=== PATIENT | female | born 1985 | race Caucasian/White ===

== ENCOUNTER 2016-10-07 11:51 | Emergency (ER) | payer OTHER ==
[2016-10-07 11:56] VITALS: BP 137/74; PULSE 78; RESP 18; TEMP 97.9
[2016-10-07] MEDS ORDERED: DIPH,PERTUS(ACELL)TETVAC-LF 0.5 ML VIAL IM ONE (12:35)
[2016-10-07] MEDS ORDERED: BACITRACIN OINT 1 EACH PACKET TOPICAL STA (12:36)
[2016-10-07] MEDS ORDERED: CEPHALEXIN 500 MG CAP PO STA (12:36)
--- NOTE | 2016-10-07 12:41 | ED ---
Wound/Laceration HPI - General Chief Complaint: Wound/Laceration Stated Complaint: laceration Time Seen by Provider: 10/07/16 12:06 Source: patient Mode of arrival: ambulatory Limitations: no limitations - History of Present Illness Initial Comments: Patient is a 31-year-old female presenting to the emergency department with complaints of laceration to the palmar aspect of her distal second digit on her left hand. Patient states she was building a kite when she cut her finger with a sharp knife. Patient is right handed. Patient currently complains of a mild throbbing pain rated 3 out of 10. Patient denies recent illness, chills, nausea, vomiting, shortness of breath, chest pain, or abdominal pain. Patient denies numbness or tingling. Patient denies previous trauma or surgeries to her left upper extremity. Patient states it has been longer than 5 years since her last tetanus vaccination. No treatment prior to arrival. Patient denies antibiotic use in last 30 days. - Related Data Previous Rx's Medication Instructions Recorded Cephalexin [Keflex] 500 mg PO Q6HR #28 cap 10/07/16 Allergies Allergy/AdvReac Type Severity Reaction Status Date / Time Penicillins AdvReac Nausea & Verified 10/07/16 11:57 Vomiting Review of Systems ROS Statement: Those systems with pertinent positive or pertinent negative responses have been documented in the HPI. ROS Other: All systems not noted in ROS Statement are negative. Past Medical History Additional Past Medical History / Comment(s): chronic knee and back pain, vit d deficiency History of Any Multi-Drug Resistant Organisms: None Reported Past Surgical History: No Surgical Hx Reported Past Psychological History: Bipolar, Depression Smoking Status: Current every day smoker Past Alcohol Use History: Rare Past Drug Use History: Marijuana General Exam - General Exam Comments Initial Comments: GENERAL: Pt awake and alert, well-appearing, well-nourished, and in no acute distress. HEAD: Atraumatic, normocephalic. EYES: Pupils equal, round, and reactive to light, extraocular movements intact, sclera anicteric, conjunctiva are normal. ENT: Oropharynx clear without exudates. Moist mucous membranes. Tongue smooth, pink, no lesions, protrudes in midline. NECK:Normal range of motion, supple without lymphadenopathy or JVD. No carotid bruits. Thyroid midline, small and firm without palpable masses. LUNGS: Breath sounds clear to auscultation bilaterally. No wheezes, rales, or rhonchi. HEART: Heart S1, S2, no S3 or S4. No murmurs, rubs or gallops. ABDOMEN: Soft, nontender, nondistended, normoactive bowel sounds. No guarding, no rebound. No masses or organomegaly appreciated. EXTREMITIES: 2+ peripheral pulses. NEUROLOGICAL: Pt oriented x 3. Cranial nerves II through XII grossly intact. Strength and sensation grossly intact. PSYCH: Normal mood, normal affect. SKIN: Warm, dry, intact. 1 cm laceration to palmar surface of distal second phalanx on the left hand. Limitations: no limitations Left Neuro motor exam: Present: wrist extension intact, thumb opposition intact, thumb IP flexion intact, thumb adduction intact, fingers 2-5 abduction intact Neurosensory exam: Present: 2-point discrimination, radial nerve intact, ulnar nerve intact, median nerve intact Vascular: Present: normal capillary refill, radial pulse, brachial pulse, ulnar pulse. Absent: vascular compromise Course Vital Signs 10/07/16 11:53 Temperature 97.9 F Pulse Rate 78 Respiratory 18 Rate Blood Pressure 137/74 O2 Sat by Pulse 100 Oximetry Procedures - Laceration Laceration #1 Consent Obtained: verbal consent Site: hand (Second digit left hand distal phalanx palmar surface) Size (cm): 1 Description: linear Depth: simple, single layer Anesthetic Used: lidocaine 1% Anesthesia Technique: local infiltration Amount (mls): 1 Pre-repair: wound explored, irrigated extensively, deep structures intact Type of Sutures: nylon Size of Sutures: 5-0 Number of Sutures: 3 Technique: simple, interrupted Patient Tolerated Procedure: well, no complications Medical Decision Making - Medical Decision Making Laceration to second digit left hand. Laceration repaired without complications. Patient tolerated procedure well. Patient educated on wound care. Patient instructed to return for suture removal and observe for complications. This has instructions and return parameters reviewed. Patient agrees to treatment plan. Disposition Clinical Impression: Laceration Disposition: HOME SELF-CARE Condition: Good Instructions: Care For Your Stitches (ED), Laceration (ED) Additional Instructions: Postop wound care: Keep wound dry and clean for 24 hours; if dressing accidentally becomes wet, change dressing immediately. Gently clean the edges of the wound daily with a cotton swab saturated with peroxide to remove crust. Return immediately if signs of infection occur such as redness or red streaks progressing up and extremity, increasing pain, swelling, or fevers. Finish oral antibiotics as prescribed. Please return for suture removal in 7-12 days or sooner if complications. Please return to the emergency department if symptoms do not improve or get worse. Prescriptions: Cephalexin [Keflex] 500 mg PO Q6HR #28 cap Referrals: Rob Mccain MD [Primary Care Provider] - 1-2 days Time of Disposition: 12:39
== END 2016-10-07 13:15 | disposition home or self-care (01) ==
LOC: EC 11:51
DX: S61.211A Laceration without foreign body of left index finger without damage to nail, initial encounter (principal); F17.200 Nicotine dependence, unspecified, uncomplicated; Z88.0 Allergy status to penicillin; Z23 Encounter for immunization; W26.0XXA Contact with knife, initial encounter; Y93.89 Activity, other specified
CPT/HCPCS: 12001; 90471; 90715; 99282

== ENCOUNTER → 2017-02-15 | Outpatient (CLI) | payer OTHER ==
--- NOTE | 2017-02-15 08:03 | MR ---
EXAMINATION TYPE: MR brain wo con DATE OF EXAM: 02/15/2017 6:37 AM COMPARISON: 03/31/2016 HISTORY: migraine w/aura and w/o status migrainosus Multiplanar and multispin-echo imaging of the brain was performed . The ventricles, basal cisterns and sulci overlying the cerebral convexities are within normal limits. There is no evidence for midline shift or mass effect. Acute intracranial hemorrhage or extra-axial collection is not evident. Previously noted small foci of increased signal on the T2 FLAIR data set persists. There is a new are a within the right basal ganglia measuring 3.8 mm as well as within the posterior left de la rosa radiata measuring 4.5 mm.Differential diagnostic possibilities include sequela of migraine headache, vasculi tis, demyelinating process as well as Lyme's disease to name a few. No acute edema is identified. The paranasal sinuses and mastoid air cells are well-aerated. IMPRESSION: Small hyperintense T2 FLAIR lesions as discussed above with slight increase relative to the prior néstor dy. Differential diagnostic possibilities discussed above.
== END | disposition home or self-care (01) ==
LOC: RADMRIMAIN 06:04
PROVIDERS: ATTEND Psychiatry & Neurology Neurology
DX: R90.89 Other abnormal findings on diagnostic imaging of central nervous system (principal); G43.109 Migraine with aura, not intractable, without status migrainosus
CPT/HCPCS: 70551

== ENCOUNTER → 2017-03-18 | Outpatient (CLI) | payer OTHER | END | disposition home or self-care (01) | LOC: LABMAIN 14:40 | PROVIDERS: ATTEND Obstetrics & Gynecology | DX: O20.9 Hemorrhage in early pregnancy, unspecified (principal); Z3A.00 Weeks of gestation of pregnancy not specified | CPT/HCPCS: 36415; 84702 ==

== ENCOUNTER → 2017-06-11 | Outpatient (CLI) | payer OTHER ==
[2017-06-11 11:07] LABS: Basophils % (A) 1 %; Eosinophils # (A) 0.2 k/uL (0-0.7); Eosinophils % (A) 3 %; HCT 43.4 % (34.0-46.0); HGB 13.6 gm/dL (11.4-16.0); Lymphocytes # (A) 1.4 k/uL (1.0-4.8); Lymphocytes % (A) 30 %; MCH 31.3 pg (25.0-35.0); MCHC 31.3 g/dL (31.0-37.0); Mean Platelet Volume 8.5; Monocytes # (A) 0.4 k/uL (0-1.0); Monocytes % (A) 8 %; Neutrophils # (A) 2.6 k/uL (1.3-7.7); Neutrophils % (A) 56 %; Platelet Count 203 k/uL (150-450); RBC 4.34 m/uL (3.80-5.40); RDW 13.2 % (11.5-15.5); WBC 4.7 k/uL (3.8-10.6)
[2017-06-11 11:18] LABS: ALT 22 U/L (9-52); AST 20 U/L (14-36); Albumin 4.3 g/dL (3.5-5.0); Alkaline Phosphatase 66 U/L (38-126); Anion Gap 9 mmol/L; Blood Urea Nitrogen 14 mg/dL (7-17); Calcium 9.6 mg/dL (8.4-10.2); Carbon Dioxide 27 mmol/L (22-30); Chloride 107 mmol/L (98-107); Glucose 97 mg/dL (74-99); Potassium 4.5 mmol/L (3.5-5.1); Sodium 143 mmol/L (137-145); Total Bilirubin 1.2 mg/dL (0.2-1.3); Total Protein 7.3 g/dL (6.3-8.2)
[2017-06-11 11:32] LABS: T4, Free (Free Thyroxine) 0.87 ng/dL (0.78-2.19)
[2017-06-11 15:17] LABS: Folate, Serum 9.3 ng/mL
[2017-06-11 15:19] LABS: Vitamin D 25 Hydroxy 45.6 ng/mL (30.0-100.0)
[2017-06-11 15:24] LABS: Progesterone <0.2 ng/mL
[2017-06-11 15:47] LABS: Hepatitis A Antibody IgM Non-Reactive (Non-Reactive); Hepatitis B Core IgM Non-Reactive (Non-Reactive)
[2017-06-11 16:39] LABS: Hemoglobin A1C 4.9 % (4.0-6.0)
[2017-06-11 18:09] LABS: Cardiolipin Ab IgG Interp NEGATIVE (NEGATIVE); Cardiolipin Ab IgM Interp NEGATIVE (NEGATIVE); Cardiolipin IgA Antibody 0.5 U/mL; Cardiolipin IgM Antibody <0.2 U/mL; HIV AB P24 Non-Reactive (Non-Reactive); HIV P24 AG Non-Reactive (Non-Reactive)
[2017-06-12 12:19] LABS: Anti-Thrombin III Activity 115 % (79-109)
[2017-06-12 13:46] LABS: Free Protein S Antigen 80 % (50 - 147)
[2017-06-12 14:20] LABS: Protein C (Activity) 62 % (71-138)
[2017-06-12 15:27] LABS: Vitamin B6 20 ug/L (5-50)
[2017-06-13 07:06] LABS: Vitamin B1 53 ug/L (38-122)
[2017-06-15 14:25] LABS: Factor V Leiden Mutation Anal Heterozygous
[2017-06-23 07:02] LABS: Nicotinuric Acid None Detected
== END | disposition home or self-care (01) ==
LOC: LABWHC1 10:17
PROVIDERS: ATTEND Obstetrics & Gynecology
DX: O26.20 Pregnancy care for patient with recurrent pregnancy loss, unspecified trimester (principal); O99.89 Other specified diseases and conditions complicating pregnancy, childbirth and the puerperium; R90.82 White matter disease, unspecified; R51 Headache; Z3A.00 Weeks of gestation of pregnancy not specified
CPT/HCPCS: 36415; 80053; 80074; 81241; 81291; 82040; 82042; 82306; 82607; 82670; 82746; 82784; 83036; 83873; 83916; 84144; 84146; 84157; 84207; 84425; 84439; 84443; 84481; 84591; 85025; 85300; 85303; 85306; 86147; 87390; 87476; 88108; 89050

== ENCOUNTER → 2017-07-07 | Outpatient (CLI) | payer OTHER ==
--- NOTE | 2017-07-07 08:21 | MR ---
EXAMINATION TYPE: MR cspine/lspine wo con DATE OF EXAM ORDERED: 07/07/2017 8:09 AM HISTORY: M54.2 Cervicalgia / M54.5 Low back pain. TECHNOLOGIST HISTORY AT TIME OF EXAM: Cervicalgia / Low back pain COMPARISON: TECHNIQUE: Multiplanar, multiecho imaging of the cervical spine was obtained without contrast on a 1 .5 bailee magnet. FINDINGS: C-SPINE: Prevertebral soft tissues are normal. Vertebral body height and alignment are maintained. Atlantoaxial relationships are normal. There is a normal craniocervical junction. Cord signal is normal. There is no significant compressive discopathy. Intervertebral foramina are well maintained. The face t and uncovertebral joints are normal. IMPRESSION: NORMAL MRI OF THE CERVICAL SPINE. L-SPINE: Paraspinal soft tissues are normal. Vertebral body height and alignment are maintained. Cord signal is normal. The conus ends normally at the level of the L2 vertebral body. From T12 L1-2 L2-3, no abnormality is seen. At L3-4, there is minimal capsulitis within the facets. At L4-5, there is minimal hypertrophic change in the facets. At L5-S1, there is mild hypertrophic change in the facets. There is no significant compressive discopathy. The neural foramina appear well maintained. IMPRESSION: 1. NO SIGNIFICANT COMPRESSIVE DISCOPATHY OR NEURAL COMPRESSION. 2. MINIMAL FACET ARTHROPATHY.
== END | disposition home or self-care (01) ==
LOC: RADMRIMAIN 07:12
PROVIDERS: ATTEND Psychiatry & Neurology Neurology
DX: M54.2 Cervicalgia (principal); M54.5 Low back pain
CPT/HCPCS: 72141; 72148

== ENCOUNTER → 2017-08-08 | Outpatient (CLI) | payer OTHER ==
[2017-08-08 15:17] LABS: Eosinophils # (A) 0.3 k/uL (0-0.7); Eosinophils % (A) 5 %; HCT 43.1 % (34.0-46.0); HGB 14.6 gm/dL (11.4-16.0)
[2017-08-08 15:18] LABS: Basophils % (A) 1 %; Lymphocytes # (A) 1.5 k/uL (1.0-4.8); Lymphocytes % (A) 29 %; MCV 94.2 fL (80.0-100.0); Mean Platelet Volume 7.7; Monocytes # (A) 0.4 k/uL (0-1.0); Monocytes % (A) 7 %; Neutrophils % (A) 57 %; Platelet Count 188 k/uL (150-450); RBC 4.57 m/uL (3.80-5.40); RDW 11.9 % (11.5-15.5); WBC 5.2 k/uL (3.8-10.6)
[2017-08-08 15:20] LABS: ALT 22 U/L (9-52); AST 17 U/L (14-36); Albumin 4.3 g/dL (3.5-5.0); Alkaline Phosphatase 74 U/L (38-126); Anion Gap 10 mmol/L; Blood Urea Nitrogen 13 mg/dL (7-17); Calcium 9.4 mg/dL (8.4-10.2); Carbon Dioxide 26 mmol/L (22-30); Chloride 107 mmol/L (98-107); Glucose 91 mg/dL (74-99); Potassium 4.1 mmol/L (3.5-5.1); Sodium 143 mmol/L (137-145); Total Protein 7.4 g/dL (6.3-8.2)
[2017-08-08 15:37] LABS: T4, Free (Free Thyroxine) 0.95 ng/dL (0.78-2.19)
[2017-08-08 18:50] LABS: Vitamin D 25 Hydroxy 27.6 ng/mL (30.0-100.0)
[2017-08-08 18:52] LABS: Folate, Serum 6.8 ng/mL
[2017-08-08 19:11] LABS: Hepatitis A Antibody IgM Non-Reactive (Non-Reactive); Hepatitis B Core IgM Non-Reactive (Non-Reactive)
[2017-08-08 20:10] LABS: HIV AB P24 Non-Reactive (Non-Reactive); HIV P24 AG Non-Reactive (Non-Reactive)
[2017-08-08 22:16] LABS: Hemoglobin A1C 4.9 % (4.0-6.0)
[2017-08-09 12:29] LABS: Vitamin B1 49 ug/L (38-122)
[2017-08-10 05:23] LABS: Vitamin B6 15 ug/L (5-50)
== END | disposition home or self-care (01) ==
LOC: LABWHC1 14:43
PROVIDERS: ATTEND Psychiatry & Neurology Pain Medicine
DX: G35 Multiple sclerosis (principal)
CPT/HCPCS: 36415; 80053; 80074; 82306; 82607; 82746; 83036; 84207; 84425; 84439; 84443; 84481; 84591; 85025; 87390

== ENCOUNTER 2017-09-11 17:56 | Emergency (ER) | payer OTHER ==
--- NOTE | 2017-09-11 19:19 | ED ---
General Adult HPI - General Chief complaint: Chest Pain Stated complaint: chest pain, up into throat, rt side of head pain Time Seen by Provider: 09/11/17 18:56 Source: patient, RN notes reviewed, old records reviewed Mode of arrival: wheelchair Limitations: no limitations - History of Present Illness Initial comments: Chief complaint and history of present illness is a 32-year-old female with complaint of acute onset midsternal chest discomfort that does increase with deep breathing. Not with twisting turning or bending. Denies sweating, no nausea no vomiting. Patient reports the discomfort went up towards her right neck area. The patient has chronic headaches. Patient reports swallowing water increased discomfort to a small degree. This occurred at 4 PM. - Related Data Home Medications Medication Instructions Recorded Confirmed Ergocalciferol (Vitamin D2) 50,000 unit PO Q7D 09/11/17 09/11/17 [Vitamin D2] Naproxen [Naprosyn] 500 mg PO Q12HR PRN 09/11/17 09/11/17 SUMAtriptan SUCCINATE [Imitrex] 50 mg PO DIRECTED PRN 09/11/17 09/11/17 Topiramate [Topamax] 50 mg PO BID PRN 09/11/17 09/11/17 Allergies Allergy/AdvReac Type Severity Reaction Status Date / Time amoxicillin AdvReac Nausea & Verified 09/11/17 19:24 Vomiting Penicillins AdvReac Nausea & Verified 09/11/17 18:01 Vomiting Review of Systems ROS Statement: Those systems with pertinent positive or pertinent negative responses have been documented in the HPI. Review of systems currently minimal to no headache no visual acuity changes no neck pain no chest pain but states deep breath. Is not complaining of shortness of breath otherwise no GI/ problems no neuro deficit complains of. All systems are reviewed. Past medical problem patient reports she's had no test recently diagnosed, one month ago, with MS. She also has a history of chronic migraines. Patient denies any surgeries. Family history significant for cancers of the cervix breast and colon. Patient was told discuss with her family physician when she should get her first colonoscopy. Patient does have seasonal ALLERGIES. She does smoke strongly encouraged to stop and drink alcohol rarely socially. Denies hurting herself by lifting twisting or turning ROS Other: All systems not noted in ROS Statement are negative. Past Medical History Additional Past Medical History / Comment(s): chronic knee and back pain, vit d deficiency History of Any Multi-Drug Resistant Organisms: None Reported Past Surgical History: No Surgical Hx Reported Past Psychological History: Bipolar, Depression Smoking Status: Current every day smoker Past Alcohol Use History: Rare Past Drug Use History: Marijuana General Exam - General Exam Comments Initial Comments: General: The patient is awake and alert, in no distress, and does not appear acutely ill. Here because she had chest discomfort starting approximately 3 hours ago that increases with taking a deep breath. Vital signs temperature 98.3 pulse 76 respiratory rate 20 pulse ox 99% room air blood pressure 134/72 Eye: Pupils are equal, round and reactive to light, extra-ocular movements are intact ; there is normal conjunctiva bilaterally. No signs of icterus. Ears, nose, mouth and throat: There are moist mucous membranes and no oral lesions. Neck: The neck is supple, there is no tenderness. Cardiovascular: There is a regular rate and rhythm. No murmur, rub or gallop is appreciated. Respiratory: Lungs are clear to auscultation, respirations are non-labored, breath sounds are equal. No wheezes, stridor, rales, or rhonchi. Midsternal chest discomfort does increase slightly with a deep breath. Gastrointestinal: Soft, non-distended, non-tender abdomen without masses or organomegaly noted. There is no rebound or guarding present. No CVA tenderness. Bowel sounds are unremarkable. Back: There is no tenderness to palpation in the midline. There is no obvious deformity. No rashes noted. Musculoskeletal: Normal ROM, no tenderness, There is no pedal edema. There is no calf tenderness or swelling. Sensation intact. Neurological: Denies any weakness, dizziness or neuro changes. Skin: Skin is warm and dry and no rashes or lesions are noted. Psychiatric: Cooperative, Limitations: no limitations Course Vital Signs 09/11/17 09/11/17 17:59 19:28 Temperature 98.3 F Pulse Rate 76 52 L Respiratory 20 16 Rate Blood Pressure 134/72 175/70 O2 Sat by Pulse 99 98 Oximetry EKG Findings - EKG Comments: EKG Findings:: EKG was done and reviewed at 1809 showing sinus bradycardia with sinus arrhythmia. Rate 56. Eye was 172 QRS 90 QT [address] Helms Medical Decision Making - Medical Decision Making Test Medical decision making; this is a 32-year-old female here with complaint of mid chest pain increases with deep breathing. Ongoing for over 3 hours. Labs show white count 7.5 hemoglobin 13 hematocrit of 41 with a INR 1.2. Potassium 4.4 to a BUN of 18 creatinine 0.8 GFR greater than 90. Glucose 90. Test Total bilirubin is 1.6. D-dimer less than 0.17 cardiac enzymes, normal, troponin less than 0.012. chest x-ray was done and reviewed by radiologist his impression is heart and mediastinum are normal. Lungs are clear. Diaphragm is normal. Bony thorax appears normal. Impression normal chest. No change. As read by Dr. Singh Reexamination of the abdomen was negative for any tenderness in the gallbladder area. We discussed pill esophagitis, spasms, cardiac issues, lung issues. This time patient does not have any discomfort. She was told to take Pepcid 1 tablet daily. She is to take food with any pain medication she is taking for her headaches. She may need endoscopy if the pain persists. Advised to talk her family doctor - Lab Data Result diagrams: 09/11/17 19:29 09/11/17 19:29 Lab Results 09/11/17 09/11/17 09/11/17 Range/Units 19:29 19:29 19:29 WBC 7.5 (3.8-10.6) k/uL RBC 4.37 (3.80-5.40) m/uL Hgb 13.6 (11.4-16.0) gm/dL Hct 41.1 (34.0-46.0) % MCV 94.0 (80.0-100.0) fL MCH 31.2 (25.0-35.0) pg MCHC 33.1 (31.0-37.0) g/dL RDW 12.4 (11.5-15.5) % Plt Count 246 (150-450) k/uL Neutrophils % 70 % Lymphocytes % 21 % Monocytes % 5 % Eosinophils % 3 % Basophils % 0 % Neutrophils # 5.3 (1.3-7.7) k/uL Lymphocytes # 1.6 (1.0-4.8) k/uL Monocytes # 0.4 (0-1.0) k/uL Eosinophils # 0.2 (0-0.7) k/uL Basophils # 0.0 (0-0.2) k/uL PT (9.0-12.0) sec INR (<1.2) D-Dimer (<0.60) mg/L FEU Sodium 143 (137-145) mmol/L Potassium 4.4 (3.5-5.1) mmol/L Chloride 107 (98-107) mmol/L Carbon Dioxide 24 (22-30) mmol/L Anion Gap 12 mmol/L BUN 18 H (7-17) mg/dL Creatinine 0.80 (0.52-1.04) mg/dL Est GFR (CKD-EPI)AfAm >90 (>60 ml/min/1.73 sqM) Est GFR (CKD-EPI)NonAf >90 (>60 ml/min/1.73 sqM) Glucose 90 (74-99) mg/dL Calcium 9.7 (8.4-10.2) mg/dL Total Bilirubin 1.6 H (0.2-1.3) mg/dL AST 17 (14-36) U/L ALT 21 (9-52) U/L Alkaline Phosphatase 70 (38-126) U/L Total Creatine Kinase 90 (30-135) U/L CK-MB (CK-2) 0.3 (0.0-2.4) ng/mL CK-MB (CK-2) Rel Index 0.3 Troponin I <0.012 (0.000-0.034) ng/mL Total Protein 7.0 (6.3-8.2) g/dL Albumin 4.2 (3.5-5.0) g/dL 09/11/17 Range/Units 19:29 WBC (3.8-10.6) k/uL RBC (3.80-5.40) m/uL Hgb (11.4-16.0) gm/dL Hct (34.0-46.0) % MCV (80.0-100.0) fL MCH (25.0-35.0) pg MCHC (31.0-37.0) g/dL RDW (11.5-15.5) % Plt Count (150-450) k/uL Neutrophils % % Lymphocytes % % Monocytes % % Eosinophils % % Basophils % % Neutrophils # (1.3-7.7) k/uL Lymphocytes # (1.0-4.8) k/uL Monocytes # (0-1.0) k/uL Eosinophils # (0-0.7) k/uL Basophils # (0-0.2) k/uL PT 11.7 (9.0-12.0) sec INR 1.2 H (<1.2) D-Dimer <0.17 (<0.60) mg/L FEU Sodium (137-145) mmol/L Potassium (3.5-5.1) mmol/L Chloride (98-107) mmol/L Carbon Dioxide (22-30) mmol/L Anion Gap mmol/L BUN (7-17) mg/dL Creatinine (0.52-1.04) mg/dL Est GFR (CKD-EPI)AfAm (>60 ml/min/1.73 sqM) Est GFR (CKD-EPI)NonAf (>60 ml/min/1.73 sqM) Glucose (74-99) mg/dL Calcium (8.4-10.2) mg/dL Total Bilirubin (0.2-1.3) mg/dL AST (14-36) U/L ALT (9-52) U/L Alkaline Phosphatase (38-126) U/L Total Creatine Kinase (30-135) U/L CK-MB (CK-2) (0.0-2.4) ng/mL CK-MB (CK-2) Rel Index Troponin I (0.000-0.034) ng/mL Total Protein (6.3-8.2) g/dL Albumin (3.5-5.0) g/dL Disposition Clinical Impression: Reflux esophagitis Disposition: HOME SELF-CARE Condition: Fair Instructions: Gastroesophageal Reflux Disease (ED), Esophageal Spasm (ED), Diet for Stomach Ulcers and Gastritis (ED) Is patient prescribed a controlled substance at d/c from ED?: No Referrals: Rob Mccain MD [Primary Care Provider] - 1-2 days Time of Disposition: 20:51
[2017-09-11 19:31] VITALS: RESP 16
[2017-09-11 19:41] LABS: Basophils % (A) 0 %; Eosinophils # (A) 0.2 k/uL (0-0.7); Eosinophils % (A) 3 %; HCT 41.1 % (34.0-46.0); HGB 13.6 gm/dL (11.4-16.0); Lymphocytes # (A) 1.6 k/uL (1.0-4.8); Lymphocytes % (A) 21 %; MCH 31.2 pg (25.0-35.0); MCHC 33.1 g/dL (31.0-37.0); Mean Platelet Volume 8.2; Monocytes # (A) 0.4 k/uL (0-1.0); Monocytes % (A) 5 %; Neutrophils # (A) 5.3 k/uL (1.3-7.7); Neutrophils % (A) 70 %; Platelet Count 246 k/uL (150-450); RBC 4.37 m/uL (3.80-5.40); RDW 12.4 % (11.5-15.5); WBC 7.5 k/uL (3.8-10.6)
--- NOTE | 2017-09-11 19:44 | XR ---
EXAMINATION TYPE: XR chest 2V DATE OF EXAM: 09/11/2017 COMPARISON: 03/31/2012 HISTORY: Epigastric pain TECHNIQUE: Frontal and lateral views of the chest are obtained. FINDINGS: Heart and mediastinum are normal. Lungs are clear. Diaphragm is normal. Bony thorax appear s normal. IMPRESSION: Normal chest. No change.
[2017-09-11 19:50] LABS: ALT 21 U/L (9-52); AST 17 U/L (14-36); Albumin 4.2 g/dL (3.5-5.0); Alkaline Phosphatase 70 U/L (38-126); Anion Gap 12 mmol/L; Blood Urea Nitrogen 18 mg/dL (7-17); Calcium 9.7 mg/dL (8.4-10.2); Carbon Dioxide 24 mmol/L (22-30); Chloride 107 mmol/L (98-107); Glucose 90 mg/dL (74-99); Potassium 4.4 mmol/L (3.5-5.1); Sodium 143 mmol/L (137-145); Total Bilirubin 1.6 mg/dL (0.2-1.3)
[2017-09-11 19:57] LABS: D-Dimer <0.17 mg/L FEU (<0.60); INR 1.2 (<1.2); Prothrombin Time 11.7 sec (9.0-12.0)
[2017-09-11 20:08] LABS: Creatine Kinase 90 U/L (30-135)
[2017-09-11 20:20] LABS: Creatine Kinase MB 0.3 ng/mL (0.0-2.4); Troponin I <0.012 ng/mL (0.000-0.034)
[2017-09-11 21:24] VITALS: BP 112/74; PULSE 80; TEMP 97.9
== END 2017-09-11 21:31 | disposition home or self-care (01) ==
LOC: EC 17:56
DX: K21.0 Gastro-esophageal reflux disease with esophagitis (principal); R51 Headache; R00.1 Bradycardia, unspecified; E55.9 Vitamin D deficiency, unspecified; F17.200 Nicotine dependence, unspecified, uncomplicated; Z79.899 Other long term (current) drug therapy; Z88.0 Allergy status to penicillin
CPT/HCPCS: 36415; 71046; 80053; 82550; 82553; 84484; 85025; 85379; 85610; 93005; 99285

== ENCOUNTER 2018-08-20 16:00 | Emergency (ER) | payer OTHER ==
[2018-08-20 16:32] VITALS: RESP 18; TEMP 98.4
--- NOTE | 2018-08-20 16:51 | ED ---
URI HPI - General Chief Complaint: Upper Respiratory Infection Stated Complaint: cold symptoms Time Seen by Provider: 08/20/18 16:38 Source: patient Mode of arrival: ambulatory Limitations: no limitations - History of Present Illness Initial Comments: This 33-year-old white female presents with the complaint of some nasal congestion which is been present over the last 2 days. She complains of some sinus pressure as well as a yellowish greenish discharge from her nose. She's only had a minimal cough with slight shortness of breath. She denies any ear pain or sore throat. There's been no fever or chills. She denies any possibility of . She did try some type of antihistamine or decongestant medication this morning without any relief. No other complaints or modifying factors. She denies any asthma or lung problems. - Related Data Home Medications Medication Instructions Recorded Confirmed Ergocalciferol (Vitamin D2) 50,000 unit PO Q7D 09/11/17 09/11/17 [Vitamin D2] Naproxen [Naprosyn] 500 mg PO Q12HR PRN 09/11/17 09/11/17 SUMAtriptan SUCCINATE [Imitrex] 50 mg PO DIRECTED PRN 09/11/17 09/11/17 Topiramate [Topamax] 50 mg PO BID PRN 09/11/17 09/11/17 Previous Rx's Medication Instructions Recorded Famotidine [Pepcid] 20 mg PO DAILY #30 tablet 09/11/17 Albuterol Sulfate [Proair Hfa] 2 puff INHALATION Q4H PRN #1 08/20/18 inhaler Cefuroxime Axetil [Ceftin] 500 mg PO BID #20 tab 08/20/18 Fluticasone Nasal [place] [Flonase 2 spr EA NOSTRIL DAILY #1 bottle 08/20/18 Nasal Mantol[place]] Allergies Allergy/AdvReac Type Severity Reaction Status Date / Time amoxicillin AdvReac Nausea & Verified 08/20/18 16:32 Vomiting Penicillins AdvReac Nausea & Verified 08/20/18 16:32 Vomiting Review of Systems ROS Statement: Those systems with pertinent positive or pertinent negative responses have been documented in the HPI. ROS Other: All systems not noted in ROS Statement are negative. Past Medical History Additional Past Medical History / Comment(s): chronic knee and back pain, vit d deficiency History of Any Multi-Drug Resistant Organisms: None Reported Past Surgical History: No Surgical Hx Reported Past Psychological History: Bipolar, Depression Smoking Status: Current every day smoker Past Alcohol Use History: Rare Past Drug Use History: Marijuana General Exam - General Exam Comments Initial Comments: GENERAL: The patient is well nourished and well hydrated. VITAL SIGNS: Heart rate, blood pressure, respiratory rate reviewed as recorded in nurse's notes. EYES: Pupils are round and reactive. Extraocular movements are intact. No conjunctival / lid redness or swelling. ENT: No external evidence of injury, swelling, or ecchymosis. Airway is patent. Throat is clear. Tympanic membranes are clear. There is some moderate nasal congestion noted. There is slight tenderness over the sinuses. No cervical lymphadenopathy. NECK: Nontender. No swelling or evidence of injury. No subcutaneous emphysema. Trachea is midline. No thyroid mass. HEART: Regular rate and rhythm. Good peripheral pulses. LUNGS/CHEST: Breath sounds clear and equal bilaterally. No rales, rhonchi, or wheezes. No ecchymosis, subcutaneous emphysema, or tenderness. ABDOMEN: Abdomen soft without tenderness. No palpable masses or organomegaly. No peritoneal signs. No abdominal wall swelling or ecchymosis. EXTREMITIES: No extremity tenderness. Normal muscle tone and function. No thoracolumbar tenderness. NEUROLOGIC: Sensation is grossly intact. Cranial nerve exam reveals face is symmetrical, tongue is midline, speech is clear. SKIN: No abrasions or ecchymosis is noted. No induration or masses noted. PSYCHIATRIC: Alert and oriented. Appropriate behavior and judgment. Limitations: no limitations Course Vital Signs 08/20/18 16:30 Temperature 98.4 F Pulse Rate 74 Respiratory 18 Rate Blood Pressure 116/77 O2 Sat by Pulse 98 Oximetry Medical Decision Making - Medical Decision Making The patient was seen and examined. It is felt as though she likely does have a sinusitis. She'll be treated for this. The possibility of a early bronchitis is also possible. She appears quite stable clinically and agrees with the following disposition and leaves in no distress. Disposition Clinical Impression: Sinusitis Disposition: HOME SELF-CARE Condition: Good Instructions (If sedation given, give patient instructions): Sinusitis (ED) Prescriptions: Cefuroxime Axetil [Ceftin] 500 mg PO BID #20 tab Fluticasone Nasal [place] [Flonase Nasal Mantoloking] 2 spr EA NOSTRIL DAILY #1 bottle Albuterol Sulfate [Proair Hfa] 2 puff INHALATION Q4H PRN #1 inhaler PRN Reason: Shortness Of Breath Or Wheezing Is patient prescribed a controlled substance at d/c from ED?: No Referrals: Rob Mccain MD [Primary Care Provider] - 1-2 days Time of Disposition: 16:49
[2018-08-20 17:48] VITALS: BP 98/58; PULSE 63
== END 2018-08-20 17:42 | disposition home or self-care (01) ==
LOC: EC 16:00
DX: J32.9 Chronic sinusitis, unspecified (principal); E55.9 Vitamin D deficiency, unspecified; F17.200 Nicotine dependence, unspecified, uncomplicated; Z88.0 Allergy status to penicillin
CPT/HCPCS: 99284

== ENCOUNTER 2018-10-21 23:45 | Emergency (ER) | payer OTHER ==
--- NOTE | 2018-10-22 01:51 | CT ---
EXAM: CT Head Without Intravenous Contrast CLINICAL HISTORY: ITS.REASON CT Reason: Pain TECHNIQUE: Axial computed tomography images of the head/brain without intravenous contrast. CTDI is 49.3 mGy and DLP is 1094.4 mGy-cm. This CT exam was performed using one or more of the following dose reduction techniques: automated exposure control, adjustment of the mA and/or kV according to patient size, and/or use of iterative reconstruction technique. COMPARISON: CT head 03/09/2016 FINDINGS: Brain: No evidence of acute transcortical cerebral infarction or intracranial hemorrhage. No abnormal mass effect or midline shift. No abnormal extra-axial collections. Ventricles: Ventricles are unremarkable. Bones/joints: No skull fracture identified. Sinuses: Imaged paranasal sinuses are clear. Mastoid air cells: Mastoid sinuses are clear. IMPRESSION: No evidence of acute intracranial abnormality.
[2018-10-22] MEDS ORDERED: METOCLOPRAMIDE 5 MG/ML 2 ML VIAL IVP STA (01:54)
[2018-10-22] MEDS ORDERED: SODIUM CHLORIDE 0.9% 1,000 ML IV STA (01:54)
[2018-10-22] MEDS ORDERED: diphenhydrAMINE 50 MG/ML 1 ML VIAL IVP STA (01:54)
[2018-10-22] MEDS ORDERED: KETOROLAC 30 MG/ML 1 ML VIAL IVP STA (01:54)
[2018-10-22] MEDS ORDERED: predniSONE 20 MG TAB PO STA ×2 (03:04)
--- NOTE | 2018-10-22 03:22 | ED ---
General Adult HPI - General Chief complaint: Headache Stated complaint: L Sided Pain, Hx MS Time Seen by Provider: 10/22/18 00:49 Source: patient, RN notes reviewed, old records reviewed Mode of arrival: ambulatory Limitations: no limitations - History of Present Illness Initial comments: 33-year-old female patient with history of multiple sclerosis parents ED approximately 3 weeks of left-sided headache. Patient reports that she has pressure sensation behind her eyes. Patient states this feels similar headache she is in the past. Denies worst headache of life. Denies thunderclap onset. Denies any recent falls or trauma. Denies any use of blood thinners. Patient does report that she has been dropping things more thoroughly left hand recently. Denies any weakness in upper or lower extremities. Denies any other complaints. Patient states that she is not . Systemic: Pt denies fatigue, fever/chills, rash. Pt denies weakness, night sweats, weight loss. Neuro: Pt denies syncope or pre-syncope. HEENT: Pt denies ocular discharge or irritation, otalgia, rhinorrhea, pharyngitis or notable lymphadenopathy. Cardiopulmonary: Pt denies chest pain, SOB, heart palpitations, dyspnea on exertion. Abdominal/GI: Pt denies abdominal pain, n/v/d. : Pt denies dysuria, burning w/ urination, frequency/urgency. Denies new onset urinary or bowel incontinence. MSK: Pt denies myalgia, loss of strength or function in extremities. Neuro: Pt denies new onset weakness, paresthesias. - Related Data Home Medications Medication Instructions Recorded Confirmed Aspirin EC [Ecotrin Low Dose] 81 mg PO DAILY 08/20/18 08/20/18 Previous Rx's Medication Instructions Recorded Albuterol Sulfate [Proair Hfa] 2 puff INHALATION Q4H PRN #1 08/20/18 inhaler Cefuroxime Axetil [Ceftin] 500 mg PO BID #20 tab 08/20/18 Fluticasone Nasal [place] [Flonase 2 spr EA NOSTRIL DAILY #1 bottle 08/20/18 Nasal [place]] predniSONE 40 mg PO Q12HR 4 Days tab 10/22/18 Allergies Allergy/AdvReac Type Severity Reaction Status Date / Time amoxicillin AdvReac Nausea & Verified 10/22/18 00:18 Vomiting Penicillins AdvReac Nausea & Verified 10/22/18 00:18 Vomiting Review of Systems ROS Statement: Those systems with pertinent positive or pertinent negative responses have been documented in the HPI. ROS Other: All systems not noted in ROS Statement are negative. Past Medical History Additional Past Medical History / Comment(s): chronic knee and back pain, vit d deficiency, MS History of Any Multi-Drug Resistant Organisms: None Reported Past Surgical History: No Surgical Hx Reported Past Psychological History: Bipolar, Depression Smoking Status: Current every day smoker Past Alcohol Use History: Rare Past Drug Use History: Marijuana General Exam - General Exam Comments Initial Comments: Constitutional: NAD, AOX3, Pt has pleasant affect. HEENT: NC/AT, trachea midline, neck supple, no lymphadenopathy. Posterior pharynx non erythematous, without exudates. External ears appear normal, without discharge. Mucous membranes moist. Eyes PERRLA, EOM intact. There is no scleral icterus. No pallor noted. Cardiopulmonary: RRR, no murmurs, rubs or gallops, no JVD noted. Lungs CTAB in anterior and posterior curiel. No peripheral edema. Abdominal exam: Abdomen soft and non-distended. Abdomen non-tender to palpation in all 4 quadrants. Bowel sounds active in LLQ. No hepatosplenomegaly. No ecchymosis Neuro: CN II-XII intact. No nuchal rigidity. No raccon eyes, no middleton sign, no hemotympanum. No cervical spinal tenderness. MSK: No posterior calf tenderness bilaterally, homans sign negative bilaterally. Posterior tibialis and radial pulse +2 bilaterally. Sensation intact in upper and lower extremities. Full active ROM in upper and lower extremities, 5/5 stregnth. Limitations: no limitations Course Vital Signs 10/22/18 00:14 Temperature 98.2 F Pulse Rate 88 Respiratory 16 Rate Blood Pressure 130/89 O2 Sat by Pulse 99 Oximetry Medical Decision Making - Medical Decision Making 33-year-old female patient with history of multiple sclerosis parents ED approximately 3 weeks of left-sided headache. Patient reports that she has pressure sensation behind her eyes. Patient states this feels similar headache she is in the past. Denies worst headache of life. Denies thunderclap onset. Denies any recent falls or trauma. Denies any use of blood thinners. Patient does report that she has been dropping things more thoroughly left hand recently. Denies any weakness in upper or lower extremities. Denies any other complaints. Patient states that she is not . Physical exam displayed normal neurologic exam. CT brain did not display acute pathology. Patient improved with headache cocktail. Patient stated 80 mg prednisone. Patient will be discharged with 40 mg prednisone BID for the next 4 days for possible multiple sclerosis exacerbation. Patient will follow-up with neurologist tomorrow. Patient return to your condition worsens. Case discussed with Dr. Fontaine. Disposition Clinical Impression: Acute headache, Multiple sclerosis exacerbation Disposition: HOME SELF-CARE Condition: Stable Instructions (If sedation given, give patient instructions): Acute Headache (ED), Multiple Sclerosis (DC) Additional Instructions: Patient to adhere to previously discussed treatment plan and will take medicati on(s) as directed. Patient to follow up with PCP in 1-2 days. Patient to return to ED if symptoms do not improve. Take steroids as directed. Follow-up with primary care provider and neurologist tomorrow. Return to ER if condition worsens. Prescriptions: predniSONE 40 mg PO Q12HR 4 Days tab Is patient prescribed a controlled substance at d/c from ED?: No Referrals: Rob Mccain MD [Primary Care Provider] - 1-2 days Kandace Liu MD [Medical Doctor] - 1-2 days
[2018-10-22 03:38] VITALS: BP 125/72; PULSE 61; RESP 17; TEMP 97.8
== END 2018-10-22 03:36 | disposition home or self-care (01) ==
LOC: EC 23:45
DX: G35 Multiple sclerosis (principal); R51 Headache; F17.200 Nicotine dependence, unspecified, uncomplicated; Z79.82 Long term (current) use of aspirin; Z88.0 Allergy status to penicillin; Z53.8 Procedure and treatment not carried out for other reasons
CPT/HCPCS: 70450; 99284; 96374; 96375 ×2; 96361; J1200; J2765; J1885; J7512

== ENCOUNTER → 2018-10-22 | Outpatient (CLI) | payer OTHER ==
[2018-10-22 16:33] LABS: Basophils % (A) 0 %; Eosinophils % (A) 0 %; HCT 40.9 % (34.0-46.0); HGB 13.1 gm/dL (11.4-16.0); Lymphocytes # (A) 0.8 k/uL (1.0-4.8); Lymphocytes % (A) 9 %; MCH 31.2 pg (25.0-35.0); MCHC 31.9 g/dL (31.0-37.0); MCV 97.7 fL (80.0-100.0); Mean Platelet Volume 7.9; Monocytes # (A) 0.2 k/uL (0-1.0); Monocytes % (A) 3 %; Neutrophils # (A) 7.6 k/uL (1.3-7.7); Neutrophils % (A) 88 %; Platelet Count 226 k/uL (150-450); RBC 4.19 m/uL (3.80-5.40); RDW 11.9 % (11.5-15.5); WBC 8.6 k/uL (3.8-10.6)
[2018-10-23 00:37] LABS: Vitamin D 25 Hydroxy 26.9 ng/mL (30.0-100.0)
[2018-10-23 00:43] LABS: Albumin 4.1 g/dL (3.80-4.90); Albumin/Globulin Ratio 1.86 (1.60-3.17); Anion Gap 6.1 mmol/L (4.00-12.00); Calcium 8.9 mg/dL (8.7-10.3); Carbon Dioxide 20.9 mmol/L (21.6-31.8); Globulin 2.2 g/dL (1.6-3.3); Potassium 4.2 mmol/L (3.5-5.5); Total Protein 6.3 g/dL (6.2-8.2)
[2018-10-23 01:10] LABS: Hemoglobin A1C 5.2 % (4.0-6.0)
[2018-10-23 01:11] LABS: Hepatitis B Core IgM Non-Reactive (Non-Reactive); Hepatitis B Surface AB- Quant 3.5 mIU/mL
[2018-10-23 01:21] LABS: HIV 1 AB Non-Reactive (Non-Reactive); HIV AB P24 Non-Reactive (Non-Reactive); HIV P24 AG Non-Reactive (Non-Reactive)
[2018-10-23 01:39] LABS: Folate, Serum 10.4 ng/mL
[2018-10-24 09:06] LABS: Vit B1(Thiamine) 74 ug/L (38-122)
[2018-10-24 09:57] LABS: V. zoster Source Blood - EDTA; Varicella zoster Virus by PCR Not detected (Not detected)
== END ==
LOC: LABWHC1 13:43
PROVIDERS: ATTEND Psychiatry & Neurology Pain Medicine
DX: Z51.81 Encounter for therapeutic drug level monitoring (principal); G35 Multiple sclerosis
CPT/HCPCS: 36415; 80053; 82306; 82607; 82746; 83036; 84207; 84425; 84439; 84443; 84481; 84591; 85025; 86704; 86705; 86706; 87340; 87390; 87798

== ENCOUNTER → 2018-12-17 | Outpatient (CLI) | payer OTHER ==
[2018-12-17 15:13] VITALS: BMI 18.9
== END | disposition home or self-care (01) ==
LOC: DBWHC3 12:56
PROVIDERS: ATTEND Family Medicine
DX: D53.9 Nutritional anemia, unspecified (principal); G35 Multiple sclerosis; Z71.3 Dietary counseling and surveillance; Z68.1 Body mass index [BMI] 19.9 or less, adult
CPT/HCPCS: 97802

== ENCOUNTER → 2019-01-24 | Outpatient (CLI) | payer OTHER | END | disposition home or self-care (01) | LOC: LABWHC1 09:34 | PROVIDERS: ATTEND Psychiatry & Neurology Pain Medicine | DX: Z51.81 Encounter for therapeutic drug level monitoring (principal); E55.9 Vitamin D deficiency, unspecified | CPT/HCPCS: 36415; 82306; 82310 ==

== ENCOUNTER → 2019-02-12 | Outpatient (CLI) | payer OTHER | END | disposition home or self-care (01) | LOC: LABWHC1 12:34 | PROVIDERS: ATTEND Psychiatry & Neurology Pain Medicine | DX: G35 Multiple sclerosis (principal); Z51.81 Encounter for therapeutic drug level monitoring | CPT/HCPCS: 36415; 85652; 86140 ==

== ENCOUNTER → 2019-04-29 | Outpatient (CLI) | payer OTHER ==
--- NOTE | 2019-04-29 19:47 | MR ---
EXAMINATION TYPE: MR knee RT wo con DATE OF EXAM: 04/29/2019 COMPARISON: Plain film 04/18/2019 HISTORY: Rt knee pain TECHNIQUE: Multiplanar, multisequence imaging of the right knee is performed without IV contrast. FINDINGS: MEDIAL MENISCUS: Anterior and posterior horns are intact without tear. LATERAL MENISCUS: Anterior and posterior horns are intact without tear. CRUCIATE LIGAMENTS: The anterior and posterior cruciate ligaments are intact and unremarkable. COLLATERAL LIGAMENTS: The medial collateral ligament and lateral collateral ligament complex are inta ct and unremarkable. EXTENSOR MECHANISM: Visualized quadriceps and patellar tendons are intact. EFFUSION: Minimal joint fluid present. POPLITEAL CYST: No popliteal/gandara cyst. TRICOMPARTMENT SPACES: Maintained CARTILAGE: Within normal limits. BONE MARROW SIGNAL: No focal abnormal marrow signal is appreciated. OTHER: There is some minimal fluid signal posterior to the distal femur IMPRESSION: No evident abnormality to account for patient's symptoms
== END ==
LOC: RADMRIMAIN 15:32
PROVIDERS: ATTEND Orthopaedic Surgery
DX: M25.561 Pain in right knee (principal)

== ENCOUNTER → 2019-06-12 | Outpatient (CLI) | payer OTHER ==
--- NOTE | 2019-06-12 20:18 | CONS ---
CONSULTATION DATE OF SERVICE: 06/12/2019 This patient is a 34-year-old lady who has been evaluated in Sleep Center for symptoms of significant excessive daytime sleepiness. HISTORY OF PRESENT ILLNESS/SLEEP-WAKE EVALUATION: Patient's usual sleep schedule is from 12:30 or 1 a.m. until 5:30 or 6 a.m. basically 7 days a week. No problems with falling asleep. No TV in bedroom. She sleeps in different positions, including back, side and also in a chair. She usually does not snore, according to her . She wakes up from sleep up to one time with nocturia. She has symptoms of restless legs and twitching of her hands during the night, according to her . No history of hypnagogic hallucinations, sleep paralysis or cataplexy. During the day she usually does not take any naps, but she is ready to take naps. She could fall asleep at any time. In the morning she wakes up tired, has difficulties paying attention, falling asleep during the day, has problems with memory, concentration, irritability, episodes of anxiety and sexual dysfunction. [place] Sleepiness Scale is 8. PAST MEDICAL HISTORY: Positive for multiple sclerosis diagnosed about 2 years ago. Some lesions have been documented in the brain area; originally presented with some kind of changes of the vision curiel. Migraines. MEDICATIONS: Methylprednisolone and acetaminophen, caffeine. SOCIAL HISTORY: Positive for smoking less than a half pack a day for about 15 years. Alcohol consumption socially. PAST SURGICAL HISTORY: None. FAMILY HISTORY: Hypertension, heart problems, arthritis, sleep apnea, headaches, cancer, acid reflux, diabetes. REVIEW OF SYSTEMS: Tiredness and sleepiness during the day. PHYSICAL EXAMINATION: GENERAL: A pleasant lady without distress. VITAL SIGNS: BP 129/70, HR 91, RR 16, height 5 feet 7 inches, weight 124.0, body mass index 19.4, temperature 97.7, oxygen saturation at room air 99%. HEENT: PERRLA, EOMI. Evaluation of oropharynx showed tongue protrudes midline. Practically normal position of soft palate. Slight restriction of nasal breathing. NECK: Supple. No JVD. Thyroid is not palpable. Neck measures 12-3/4 inches in circumference. LUNGS: Clear to percussion and to auscultation. Good air exchange. No wheezing or rhonchi. HEART: S1, S2 regular. No murmurs, gallops or rubs. ABDOMEN: Soft. No tenderness. EXTREMITIES: No clubbing or cyanosis. CERTIFIED WELDING INSPECTOR: Awake, alert, and oriented X3. Cranial nerves 2 to 7 intact. There is no fasciculation or atrophy. noted. No focal deficits observed. IMPRESSION: 1. Excessive daytime sleepiness. According to patient's , she could fall asleep at any time. 2. Twitching of the arms and movements during the night. Possible periodic limb movements. 3. Symptoms of restless legs syndrome while falling asleep. 4. History of multiple sclerosis confirmed by results of MRI of the brain; previously had some changing of the visual curiel. 5. Migraines. PLAN: 1. Polysomnography with a subsequent multiple sleep latency test for evaluation of patient's movements during the night, check for her breathing during sleep and for objective evaluation of her sleepiness during the day. 2. Sleep hygiene with regular time in bed for at least 7-1/2 to 8 hours. Presently her sleep schedule could be insufficient. 3. Precautions related to driving. No driving if feeling any sleepiness. 4. Following plan after reviewing results of sleep studies. 5. Please check iron profile, including ferritin level. Low level of iron may increase risk for restless legs and periodic limb movements. Thank you very much for referring this patient for consultation. Sincerely, Kasi Cooper MD, PhD, FAASM Diplomat of [employer] [employer] [employer] of [facility] [place] MMODL / IJN: [id number] /
== END | disposition home or self-care (01) ==
LOC: SLEEP 14:56
PROVIDERS: ATTEND Internal Medicine
DX: G47.10 Hypersomnia, unspecified (principal); G47.8 Other sleep disorders; R25.3 Fasciculation; G43.909 Migraine, unspecified, not intractable, without status migrainosus; F17.200 Nicotine dependence, unspecified, uncomplicated; Z83.6 Family history of other diseases of the respiratory system; Z86.69 Personal history of other diseases of the nervous system and sense organs; Z79.52 Long term (current) use of systemic steroids
CPT/HCPCS: 99211

== ENCOUNTER → 2019-07-08 | Outpatient (CLI) | payer OTHER ==
[2019-07-08 17:38] LABS: Potassium 3.9 mmol/L (3.5-5.1)
[2019-07-08 17:54] LABS: Basophils % (A) 0 %; Eosinophils # (A) 0.2 k/uL (0-0.7); Eosinophils % (A) 2 %; HCT 41.7 % (34.0-46.0); HGB 14.1 gm/dL (11.4-16.0); Lymphocytes # (A) 1.6 k/uL (1.0-4.8); Lymphocytes % (A) 18 %; MCH 33.4 pg (25.0-35.0); MCHC 33.8 g/dL (31.0-37.0); MCV 98.7 fL (80.0-100.0); Mean Platelet Volume 8.8; Monocytes # (A) 0.6 k/uL (0-1.0); Monocytes % (A) 7 %; Neutrophils # (A) 6.3 k/uL (1.3-7.7); Neutrophils % (A) 72 %; Platelet Count 194 k/uL (150-450); RBC 4.22 m/uL (3.80-5.40); RDW 11.8 % (11.5-15.5); WBC 8.8 k/uL (3.8-10.6)
== END ==
LOC: LABPAT 16:13
PROVIDERS: ATTEND Orthopaedic Surgery
DX: Z01.812 Encounter for preprocedural laboratory examination (principal); M23.91 Unspecified internal derangement of right knee; R35.0 Frequency of micturition
CPT/HCPCS: 36415; 80051; 85025

== ENCOUNTER → 2019-07-17 | Outpatient (CLI) | payer OTHER ==
--- NOTE | 2019-07-17 13:09 | SFUN ---
SLEEP CENTER FOLLOW UP NOTE DATE OF SERVICE: 07/17/2019 A 34-year-old lady has been followed in Sleep Center to discuss results of sleep study and following plan. I discussed results of sleep study with patient and family in detail. No significant respiratory abnormalities during sleep at all. Normal oxygenation during the sleep. No significant amount of periodic limb movements during the sleep. Multiple sleep latency on the following day showed pathological sleepiness with sleep latency less than 1 minute and one sleep onset REM documented. Patient continued to feel sleepiness during the day. Today, she feels tried modafinil 200 mg. With medication, she feels better today. [place] Sleepiness Scale today is 6. MEDICATIONS: Modafinil and hydrocodone-acetaminophen. PHYSICAL EXAMINATION: During physical exam, patient in no distress. VITAL SIGNS: BP 120/66, HR 70, RR 14, weight 128.6 pounds, temperature 97.9, oxygen saturation in room air 100%. HEENT: PERRLA, EOMI, evaluation of oropharynx showed tongue protrudes midline. NECK: Supple, no JVD. Thyroid is not palpable. LUNGS: Clear to percussion and to auscultation. Good air exchange. No wheezing or rhonchi. HEART: S1, S2 regular. No murmurs, gallops, or rubs. ABDOMEN: Soft and nontender. Bowel sounds are present. No organomegaly appreciated. EXTREMITIES: No clubbing or cyanosis. PUBLISHING SYSTEMS ANALYST: Awake, alert, and oriented X3. Cranial nerves 2 to 7 intact. There is no fasciculation or atrophy. noted. No focal deficits observed. IMPRESSION: 1. No significant respiratory abnormalities have been documented during the sleep study. 2. 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 3. After taking one tablet of modafinil 200 mg, patient feels better today. No clear side effect of medication. 4. History of multiple sclerosis. 5. History of migraines. 6. Status post right knee arthroscopic surgery one week ago. PLAN: 1. Patient will continue to take modafinil once in the morning. If necessary, dose will be adjusted. 2. Sleep hygiene with regular time in bed for at least 7-1/2 to 8 hours. 3. Daytime naps permitted. 4. Extreme precautions related to driving. No driving if feeling any sleepiness. Thank you very much for allowing me to participate in management of your patient. Sincerely, Kasi Cooper MD, PhD, FAASM Diplomat of [place] [employer] [employer] [facility] [place] FILI / KENDAL: [id number] /
== END | disposition home or self-care (01) ==
LOC: SLEEP 11:49
PROVIDERS: ATTEND Internal Medicine
DX: G47.8 Other sleep disorders (principal); Z86.69 Personal history of other diseases of the nervous system and sense organs; Z98.890 Other specified postprocedural states; Z79.899 Other long term (current) drug therapy; Z79.891 Long term (current) use of opiate analgesic

== ENCOUNTER 2019-12-09 02:49 | Emergency (ER) | payer OTHER ==
--- NOTE | 2019-12-09 03:32 | ED ---
Female Urogenital HPI - General Chief complaint: Urogenital Stated complaint: Vaginal discharge Time Seen by Provider: 12/09/19 02:53 Source: patient Mode of arrival: ambulatory Limitations: no limitations - History of Present Illness Initial comments: This is a 34-year-old female DF for evaluation. Patient states she started her period recently and was having some minimal bleeding and spotting then noticed a malodorous discharge, patient having no real abdominal pain no fevers no nausea or vomiting. No new sexual partners or sexual contacts MD Complaint: vaginal discharge, dysuria, possible STD -: hour(s) Location: suprapubic Severity: mild Severity scale (1-10): 3 Quality: cramping Consistency: intermittent Improves with: urination Worsens with: urination Patient : No Associated Symptoms: vaginal discharge, nausea/vomiting, dysuria - Related Data Previous Rx's Medication Instructions Recorded Hydrocodone/Acetaminophen [[place] 1 each PO Q6HR PRN #21 tab 07/10/19 5-325] Nitrofurantoin Monohyd/M-Cryst 100 mg PO Q12HR #10 cap 12/09/19 [Macrobid] Allergies Allergy/AdvReac Type Severity Reaction Status Date / Time amoxicillin AdvReac Nausea & Verified 12/09/19 03:01 Vomiting [place] And Derivatives AdvReac Unknown Verified 12/09/19 03:01 egg AdvReac Unknown Verified 12/09/19 03:01 peas AdvReac Unknown Verified 12/09/19 03:01 Penicillins AdvReac Nausea & Verified 12/09/19 03:01 Vomiting soy AdvReac Unknown Verified 12/09/19 03:01 wheat AdvReac Unknown Verified 12/09/19 03:01 Review of Systems ROS Statement: Those systems with pertinent positive or pertinent negative responses have been documented in the HPI. ROS Other: All systems not noted in ROS Statement are negative. Past Medical History Additional Past Medical History / Comment(s): chronic knee and back pain, vit d deficiency, MS History of Any Multi-Drug Resistant Organisms: None Reported Past Surgical History: No Surgical Hx Reported Past Psychological History: Bipolar, Depression Smoking Status: Current every day smoker Past Alcohol Use History: Rare Past Drug Use History: Marijuana General Exam Limitations: no limitations General appearance: alert, in no apparent distress Head exam: Present: atraumatic, normocephalic, normal inspection Eye exam: Present: normal appearance, PERRL, EOMI. Absent: scleral icterus, conjunctival injection, periorbital swelling ENT exam: Present: normal exam, mucous membranes moist Neck exam: Present: normal inspection. Absent: tenderness, meningismus, lymphadenopathy Respiratory exam: Present: normal lung sounds bilaterally. Absent: respiratory distress, wheezes, rales, rhonchi, stridor Cardiovascular Exam: Present: regular rate, normal rhythm, normal heart sounds. Absent: systolic murmur, diastolic murmur, rubs, gallop, clicks GI/Abdominal exam: Present: soft, normal bowel sounds. Absent: distended, tenderness, guarding, rebound, rigid Extremities exam: Present: normal inspection, full ROM, normal capillary refill. Absent: tenderness, pedal edema, joint swelling, calf tenderness Back exam: Present: normal inspection Neurological exam: Present: alert, oriented X3, CN II-XII intact Psychiatric exam: Present: normal affect, normal mood Skin exam: Present: warm, dry, intact, normal color. Absent: rash Course Vital Signs 12/09/19 12/09/19 12/09/19 02:58 04:33 05:42 Temperature 98.2 F 97.4 F L 98.1 F Pulse Rate 92 60 67 Respiratory 18 16 16 Rate Blood Pressure 125/79 105/76 122/86 O2 Sat by Pulse 99 100 99 Oximetry - Reevaluation(s) Reevaluation #1: Medical records reviewed Patient given appropriate antibiotics here in the ER in for discharge Patient informed of UTI, questions answered Medical Decision Making - Medical Decision Making 34 female DF for evaluation of possible vaginal discharge found of UTI here in the ER, patient stable awake alert able to eat and drink without difficulty and can be discharged home - Lab Data Lab Results 12/09/19 12/09/19 Range/Units 04:03 04:03 Urine Color Yellow Urine Appearance Clear (Clear) Urine pH 6.5 (5.0-8.0) Ur Specific [place] 1.022 (1.001-1.035) Urine Protein Negative (Negative) Urine Glucose (UA) Negative (Negative) Urine Ketones Negative (Negative) Urine Blood Negative (Negative) Urine Nitrite Negative (Negative) Urine Bilirubin Negative (Negative) Urine Urobilinogen 4.0 (<2.0) mg/dL Ur Leukocyte Esterase Trace H (Negative) Urine RBC 1 (0-5) /hpf Urine WBC 7 H (0-5) /hpf Ur Squamous Epith Cells 1 (0-4) /hpf Urine Bacteria Rare H (None) /hpf Urine Mucus Rare H (None) /hpf Urine HCG, Qual Not Detected (Not Detectd) Disposition Clinical Impression: Urinary tract infection Disposition: HOME SELF-CARE Condition: Good Instructions (If sedation given, give patient instructions): Urinary Tract Infection in Women (ED) Prescriptions: Nitrofurantoin Monohyd/M-Cryst [Macrobid] 100 mg PO Q12HR #10 cap Is patient prescribed a controlled substance at d/c from ED?: No Referrals: Natasha Tabares MD [Primary Care Provider] - 1-2 days
[2019-12-09 04:34] VITALS: RESP 16
[2019-12-09 05:18] LABS: Appearance,Urine Clear (Clear); Bacteria,Urine Rare /hpf; Bilirubin,Urine Negative (Negative); Blood,Urine Negative (Negative); Color,Urine Yellow; Glucose,Urine (UA) Negative (Negative); Ketones,Urine Negative (Negative); Leukocyte Esterase,Urine Trace (Negative); Mucus,Urine Rare /hpf; Nitrite,Urine Negative (Negative); PH, Urine 6.5 (5.0-8.0); Protein,Urine Negative (Negative); RBC,Urine 1 /hpf (0-5); Specific Gravity,Urine 1.022 (1.001-1.035); Squamous Epithelial Cell,Urine 1 /hpf (0-4); WBC,Urine 7 /hpf (0-5)
[2019-12-09] MEDS ORDERED: cefTRIAXone 250 MG VIAL IM STA (05:21)
[2019-12-09] MEDS ORDERED: AZITHROMYCIN 500 MG TAB PO STA (05:22)
[2019-12-09 05:45] VITALS: BP 122/86; PULSE 67; TEMP 98.1
[2019-12-10 16:01] LABS: C. trachomatis,PCR Negative (Neg,Equiv); Chlamydia trachomatis Source Urine; N. gonorrhoeae,PCR Negative (Neg,Equiv); Neisseria Source Urine
== END 2019-12-09 05:53 | disposition home or self-care (01) ==
LOC: EC 02:49
DX: N39.0 Urinary tract infection, site not specified (principal); R11.2 Nausea with vomiting, unspecified; F17.200 Nicotine dependence, unspecified, uncomplicated; Z88.0 Allergy status to penicillin; Z91.048 Other nonmedicinal substance allergy status; Z91.012 Allergy to eggs; Z91.018 Allergy to other foods
CPT/HCPCS: 81001; 81025; 87491; 87591; 99283; 96372; J0696

== ENCOUNTER 2020-03-05 17:32 | Emergency (ER) | payer OTHER ==
--- NOTE | 2020-03-05 18:31 | XR ---
EXAMINATION TYPE: XR chest 2V DATE OF EXAM: 03/05/2020 COMPARISON: 09/11/2017 HISTORY: Cough TECHNIQUE: FINDINGS: Heart and mediastinum are normal. Lungs are clear. Diaphragm is normal. Bony thorax appears normal. IMPRESSION: Normal chest. No change.
--- NOTE | 2020-03-05 18:54 | ED ---
URI HPI - General Chief Complaint: Upper Respiratory Infection Stated Complaint: sore throat, head ache, coughing Time Seen by Provider: 03/05/20 17:56 Source: patient Mode of arrival: ambulatory Limitations: no limitations - History of Present Illness Initial Comments: Patient is a 35-year-old female presenting to the emergency Department with a chief complaint of URI symptoms. Patient reports symptoms have been ongoing now for the past week. Patient reports recently her was diagnosed with pneumonia she is concerned that she might be developing as well. Patient does report a nonproductive cough. Does report chills but no fevers. Does report clear bilateral rhinorrhea and sore throat especially after coughing fits. Patient is a smoker but does not have history of COPD or asthma. Denies any chest pain or shortness of breath. Denies direct exposure to known covid- 19Positive patient. - Related Data Previous Rx's Medication Instructions Recorded Hydrocodone/Acetaminophen [[place] 1 each PO Q6HR PRN #21 tab 07/10/19 5-325] Nitrofurantoin Monohyd/M-Cryst 100 mg PO Q12HR #10 cap 12/09/19 [Macrobid] Allergies Allergy/AdvReac Type Severity Reaction Status Date / Time amoxicillin AdvReac Nausea & Verified 03/05/20 17:42 Vomiting [place] And Derivatives AdvReac Unknown Verified 03/05/20 17:42 egg AdvReac Unknown Verified 03/05/20 17:42 peas AdvReac Unknown Verified 03/05/20 17:42 Penicillins AdvReac Nausea & Verified 03/05/20 17:42 Vomiting soy AdvReac Unknown Verified 03/05/20 17:42 wheat AdvReac Unknown Verified 03/05/20 17:42 Review of Systems ROS Statement: Those systems with pertinent positive or pertinent negative responses have been documented in the HPI. ROS Other: All systems not noted in ROS Statement are negative. Past Medical History Additional Past Medical History / Comment(s): chronic knee and back pain, vit d deficiency, MS History of Any Multi-Drug Resistant Organisms: None Reported Past Surgical History: No Surgical Hx Reported Past Psychological History: Bipolar, Depression Smoking Status: Current every day smoker Past Alcohol Use History: Rare Past Drug Use History: Marijuana General Exam Limitations: no limitations General appearance: alert, in no apparent distress Head exam: Present: atraumatic, normocephalic, normal inspection Eye exam: Present: normal appearance, PERRL, EOMI Pupils: Present: normal accommodation ENT exam: Present: normal exam, normal oropharynx, mucous membranes moist, TM's normal bilaterally, normal external ear exam Neck exam: Present: normal inspection, full ROM. Absent: tenderness Respiratory exam: Present: normal lung sounds bilaterally. Absent: respiratory distress, wheezes, rales Cardiovascular Exam: Present: regular rate, normal rhythm, normal heart sounds GI/Abdominal exam: Present: soft. Absent: distended, tenderness, guarding, rebound Extremities exam: Present: normal inspection, full ROM, normal capillary refill. Absent: tenderness Back exam: Present: normal inspection, full ROM. Absent: tenderness, CVA tenderness (R), CVA tenderness (L) Neurological exam: Present: alert, oriented X3 Psychiatric exam: Present: normal affect, normal mood Skin exam: Present: warm, dry, intact, normal color Course Vital Signs 03/05/20 03/05/20 03/05/20 17:39 18:46 19:19 Temperature 98.8 F 98.9 F Pulse Rate 61 73 Respiratory 20 18 16 Rate Blood Pressure 124/80 126/70 O2 Sat by Pulse 99 99 Oximetry Medical Decision Making - Medical Decision Making Patient is a 35-year-old female presenting to the emergency department with a chief complaint of upper respiratory symptoms. On physical examination, patient does not have any respiratory distress. Her lungs are clear to auscultation. She does have some rhinorrhea and sore throat. No signs of strep pharyngitis. Chest x-ray is unremarkable. C covid-19 testing pending. Patient advised self isolate until she received the results of the test. She was also advised to only take Tylenol if she develops a fever until she receives the results. I counseled the patient for smoking cessation for greater than 3 minutes Strict return parameters were thoroughly discussed the patient was upsetting and agreeable. Case discussed with physician. Disposition Clinical Impression: Upper respiratory infection Disposition: HOME SELF-CARE Condition: Stable Instructions (If sedation given, give patient instructions): Upper Respiratory Infection (ED) Additional Instructions: Follow with the primary care physician. Return to emergency department if symptoms worsen. Take Tylenol if you develop a fever. Self isolate until he received the results of the Covid testing. Is patient prescribed a controlled substance at d/c from ED?: No Referrals: Natasha Tabares MD [Primary Care Provider] - 1-2 days Time of Disposition: 19:07
[2020-03-05 19:22] VITALS: BP 126/70; PULSE 73; RESP 16; TEMP 98.9
== END 2020-03-05 19:21 | disposition home or self-care (01) ==
LOC: EC 17:32
DX: J06.9 Acute upper respiratory infection, unspecified (principal); F17.200 Nicotine dependence, unspecified, uncomplicated; Z88.0 Allergy status to penicillin; Z91.012 Allergy to eggs; Z91.018 Allergy to other foods; Z20.828 Contact with and (suspected) exposure to other viral communicable diseases
CPT/HCPCS: 99283 ×2; 99406 ×2; 71046; U0003

== ENCOUNTER 2020-04-01 13:11 | Emergency (ER) | payer OTHER ==
[2020-04-01 13:19] VITALS: RESP 18; TEMP 98.6
--- NOTE | 2020-04-01 14:20 | ED ---
General Adult HPI - General Chief complaint: Dizziness Stated complaint: Light headed, SOB Time Seen by Provider: 04/01/20 14:08 Source: patient, RN notes reviewed Mode of arrival: wheelchair Limitations: no limitations - History of Present Illness Initial comments: 35-year-old female with a past medical history of chronic knee and back pain, vitamin D deficiency, multiple sclerosis presents to the emergency room for a chief complaint of numbness in her back. Patient reports that a week ago she was however walking into a door and sensation numbness in her back. States it comes and goes. She denies any significant pain. States this is in her mid back. Denies any weakness or numbness in the legs or arms. Denies any difficulty walking. Denies blood or bowel changes. Denies fevers or chills. Patient reports she doesn't history of MS and has not spoken with her neurologist about this.patient also reports that today she was at work and went outside to have a cigarette. Reports that she was sitting down smoking. She went to stand up and come inside. When she got inside she started to feel lightheaded and dizzy. Pelvic she was going to pass out. Patient states the symptoms have completely resolved. Patient has no other complaints at this time including shortness of breath, chest pain, abdominal pain, nausea or vomiting, headache, or visual changes. - Related Data Home Medications Medication Instructions Recorded Confirmed Butalb/APAP/Caff 50-325-40Mg 1 tab PO TID PRN 04/01/20 04/01/20 [Fioricet 50-325-40] Sertraline [Zoloft] 50 mg PO DAILY 04/01/20 04/01/20 lamoTRIgine [LaMICtal] 50 mg PO HS 04/01/20 04/01/20 modafiniL [Provigil] 200 mg PO DAILY PRN 04/01/20 04/01/20 Allergies Allergy/AdvReac Type Severity Reaction Status Date / Time amoxicillin AdvReac Nausea & Verified 04/01/20 14:24 Vomiting [place] And Derivatives AdvReac Unknown Verified 04/01/20 14:24 egg AdvReac Unknown Verified 04/01/20 14:24 peas AdvReac Unknown Verified 04/01/20 14:24 Penicillins AdvReac Nausea & Verified 04/01/20 14:24 Vomiting soy AdvReac Unknown Verified 04/01/20 14:24 wheat AdvReac Unknown Verified 04/01/20 14:24 Review of Systems ROS Statement: Those systems with pertinent positive or pertinent negative responses have been documented in the HPI. ROS Other: All systems not noted in ROS Statement are negative. Past Medical History Additional Past Medical History / Comment(s): chronic knee and back pain, vit d deficiency, MS, narcalepsy History of Any Multi-Drug Resistant Organisms: None Reported Past Surgical History: No Surgical Hx Reported Past Psychological History: Bipolar, Depression Smoking Status: Current every day smoker Past Alcohol Use History: Rare Past Drug Use History: Marijuana General Exam Limitations: no limitations General appearance: alert, in no apparent distress (Patient resting comfortably on her cell phone, no distress) Head exam: Present: atraumatic, normocephalic, normal inspection Eye exam: Present: normal appearance, PERRL, EOMI. Absent: scleral icterus, conjunctival injection, periorbital swelling ENT exam: Present: normal exam, mucous membranes moist Neck exam: Present: normal inspection, full ROM. Absent: tenderness, meningismus, lymphadenopathy Respiratory exam: Present: normal lung sounds bilaterally. Absent: respiratory distress, wheezes, rales, rhonchi, stridor Cardiovascular Exam: Present: regular rate, normal rhythm, normal heart sounds. Absent: systolic murmur, diastolic murmur, rubs, gallop, clicks GI/Abdominal exam: Present: soft, normal bowel sounds. Absent: distended, tenderness, guarding, rebound, rigid Extremities exam: Present: normal capillary refill (Capillary refill less than 2 seconds, DP pulse 2+ in lower external nares bilaterally. Radial pulses 2+ in upper extremities bilaterally.), other (Strength 5 out of 5 in upper and lower extremities bilaterally) Back exam: Present: other (Patient has sensation throughout her back, no tenderness.). Absent: CVA tenderness (R), CVA tenderness (L) Neurological exam: Present: alert, oriented X3, normal gait, other (GCS 15) Course Vital Signs 04/01/20 04/01/20 13:16 16:28 Temperature 98.6 F Pulse Rate 66 45 L Respiratory 18 18 Rate Blood Pressure 119/74 117/68 O2 Sat by Pulse 99 98 Oximetry EKG Findings - EKG Comments: EKG Findings:: Sinus bradycardia, ventricular rate 40, RI interval 194, QTC 400 Medical Decision Making - Medical Decision Making When patient presented heart rate was 66. EKG did reveal bradycardia with a ventricular rate of 40. I did go in and reevaluate patient and heart rate was sustained in the high 50s to 60s. Patient has been asymptomatic throughout her ER stay. CBC CMP unremarkable. Troponin negative. Magnesium 2.1. Chest x-ray shows no acute process. Patient reevaluated, continues to be asymptomatic. No lightheadedness here in the emergency room. Heart rate has been maintained in the 50s. Patient requested discharge home. I did discuss follow-up with her doctor for low heart rate. Recommended she return here for any worsening symptoms that she does agree with such as lightheadedness. - Lab Data Result diagrams: 04/01/20 15:15 04/01/20 15:15 Lab Results 04/01/20 04/01/20 04/01/20 Range/Units 15:15 15:15 15:15 WBC 7.0 (3.8-10.6) k/uL RBC 4.56 (3.80-5.40) m/uL Hgb 14.3 (11.4-16.0) gm/dL Hct 44.8 (34.0-46.0) % MCV 98.2 (80.0-100.0) fL MCH 31.4 (25.0-35.0) pg MCHC 31.9 (31.0-37.0) g/dL RDW 12.0 (11.5-15.5) % Plt Count 231 (150-450) k/uL MPV 8.6 Neutrophils % 61 % Lymphocytes % 27 % Monocytes % 6 % Eosinophils % 4 % Basophils % 1 % Neutrophils # 4.3 (1.3-7.7) k/uL Lymphocytes # 1.9 (1.0-4.8) k/uL Monocytes # 0.4 (0-1.0) k/uL Eosinophils # 0.3 (0-0.7) k/uL Basophils # 0.0 (0-0.2) k/uL Sodium 138 (137-145) mmol/L Potassium 4.0 (3.5-5.1) mmol/L Chloride 109 H (98-107) mmol/L Carbon Dioxide 23 (22-30) mmol/L Anion Gap 6 mmol/L BUN 13 (7-17) mg/dL Creatinine 0.67 (0.52-1.04) mg/dL Est GFR (CKD-EPI)AfAm >90 (>60 ml/min/1.73 sqM) Est GFR (CKD-EPI)NonAf >90 (>60 ml/min/1.73 sqM) Glucose 91 (74-99) mg/dL Calcium 9.0 (8.4-10.2) mg/dL Magnesium 2.1 (1.6-2.3) mg/dL Total Bilirubin 1.0 (0.2-1.3) mg/dL AST 21 (14-36) U/L ALT 12 (4-34) U/L Alkaline Phosphatase 75 (38-126) U/L Troponin I <0.012 (0.000-0.034) ng/mL Total Protein 6.8 (6.3-8.2) g/dL Albumin 4.2 (3.5-5.0) g/dL Disposition Clinical Impression: Bradycardia Disposition: HOME SELF-CARE Condition: Good Instructions (If sedation given, give patient instructions): Bradycardia (ED) Additional Instructions: Please follow-up with your doctor for low heart rate. However if you have any other symptoms such as lightheadedness or you pass out you must return to the emergency room. Is patient prescribed a controlled substance at d/c from ED?: No Referrals: Natasha Tabares MD [Primary Care Provider] - 1-2 days Time of Disposition: 16:42
--- NOTE | 2020-04-01 14:40 | XR ---
EXAMINATION TYPE: XR chest 2V DATE OF EXAM: 04/01/2020 COMPARISON: 03/05/2020 TECHNIQUE: PA and lateral views submitted. HISTORY: Shortness of breath FINDINGS: The lungs are clear and there is no pneumothorax, pleural effusion, or focal pneumonia. Heart size normal. No overt failure. Mild hyperinflation with biapical pleural thickening. Correlate for COPD or asthma. Hypertrophic and degenerative change of the spine. IMPRESSION: 1. No acute process.
[2020-04-01 15:31] LABS: Basophils % (A) 1 %; Eosinophils # (A) 0.3 k/uL (0-0.7); Eosinophils % (A) 4 %; HCT 44.8 % (34.0-46.0); HGB 14.3 gm/dL (11.4-16.0); Lymphocytes # (A) 1.9 k/uL (1.0-4.8); Lymphocytes % (A) 27 %; MCH 31.4 pg (25.0-35.0); MCHC 31.9 g/dL (31.0-37.0); MCV 98.2 fL (80.0-100.0); Mean Platelet Volume 8.6; Monocytes # (A) 0.4 k/uL (0-1.0); Monocytes % (A) 6 %; Neutrophils # (A) 4.3 k/uL (1.3-7.7); Neutrophils % (A) 61 %; Platelet Count 231 k/uL (150-450); RBC 4.56 m/uL (3.80-5.40)
[2020-04-01 15:44] LABS: ALT 12 U/L (4-34); AST 21 U/L (14-36); African American GFR (CKD) >90 (>60 ml/min/1.73 sqM); Albumin 4.2 g/dL (3.5-5.0); Alkaline Phosphatase 75 U/L (38-126); Anion Gap 6 mmol/L; Blood Urea Nitrogen 13 mg/dL (7-17); Carbon Dioxide 23 mmol/L (22-30); Chloride 109 mmol/L (98-107); Glucose 91 mg/dL (74-99); Magnesium 2.1 mg/dL (1.6-2.3); Non-African American GFR(CKD) >90 (>60 ml/min/1.73 sqM); Sodium 138 mmol/L (137-145); Total Protein 6.8 g/dL (6.3-8.2)
[2020-04-01 16:54] VITALS: BP 124/80; PULSE 57
== END 2020-04-01 17:00 | disposition home or self-care (01) ==
LOC: EC 13:11
DX: R00.1 Bradycardia, unspecified (principal); R20.0 Anesthesia of skin; F31.9 Bipolar disorder, unspecified; F17.200 Nicotine dependence, unspecified, uncomplicated; Z79.899 Other long term (current) drug therapy; Z88.0 Allergy status to penicillin; Z88.1 Allergy status to other antibiotic agents; Z91.012 Allergy to eggs; Z91.018 Allergy to other foods
CPT/HCPCS: 36415; 71046; 80053; 83735; 84484; 85025; 93005; 99284

== ENCOUNTER → 2020-04-05 | Outpatient (CLI) | payer OTHER | END | disposition home or self-care (01) | LOC: LABWHC1 10:19 | PROVIDERS: ATTEND Internal Medicine Cardiovascular Disease | DX: R00.1 Bradycardia, unspecified (principal) | CPT/HCPCS: 36415; 84439; 84443 ==

== ENCOUNTER 2020-05-31 00:30 | Emergency (ER) | payer OTHER ==
[2020-05-31 00:38] VITALS: TEMP 98.4
--- NOTE | 2020-05-31 00:59 | ED ---
General Adult HPI - General Chief complaint: Chest Pain Stated complaint: Chest Pain Time Seen by Provider: 05/31/20 00:39 Source: patient, RN notes reviewed Mode of arrival: ambulatory Limitations: no limitations - History of Present Illness Initial comments: 35-year-old female presents to the emergency room for a chief complaint of chest pain. Patient states that earlier today she had about a 5 minute episode of sharp chest pain worse when exhaling. States this happened at work. Patient states it then happened again today where she was going to bed. She states that throughout these episodes she has shortness of breath. Patient states she has minimal soreness at this time but denies any shortness of breath. Patient denies any swelling in the legs or recent travel. 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 Patient does not take blood thinners.patient denies any pain worsening with exertion. Denies any nausea or diaphoresis associated with this pain. Denies any radiating pain to the back arm or jaw. Patient has no other complaints at this time including abdominal pain, nausea or vomiting, headache, or visual changes. - Related Data Home Medications Medication Instructions Recorded Confirmed Butalb/APAP/Caff 50-325-40Mg 1 tab PO TID PRN 04/01/20 04/01/20 [Fioricet 50-325-40] Sertraline [Zoloft] 50 mg PO DAILY 04/01/20 04/01/20 lamoTRIgine [LaMICtal] 50 mg PO HS 04/01/20 04/01/20 modafiniL [Provigil] 200 mg PO DAILY PRN 04/01/20 04/01/20 Allergies Allergy/AdvReac Type Severity Reaction Status Date / Time amoxicillin AdvReac Nausea & Verified 05/31/20 00:38 Vomiting [place] And Derivatives AdvReac Unknown Verified 05/31/20 00:38 egg AdvReac Unknown Verified 05/31/20 00:38 peas AdvReac Unknown Verified 05/31/20 00:38 Penicillins AdvReac Nausea & Verified 05/31/20 00:38 Vomiting soy AdvReac Unknown Verified 05/31/20 00:38 wheat AdvReac Unknown Verified 05/31/20 00:38 Review of Systems ROS Statement: Those systems with pertinent positive or pertinent negative responses have been documented in the HPI. ROS Other: All systems not noted in ROS Statement are negative. Past Medical History Additional Past Medical History / Comment(s): chronic knee and back pain, vit d deficiency, MS, narcalepsy, Factor 5 History of Any Multi-Drug Resistant Organisms: None Reported Past Surgical History: No Surgical Hx Reported Past Psychological History: Bipolar, Depression Smoking Status: Current every day smoker Past Alcohol Use History: Rare Past Drug Use History: Marijuana General Exam Limitations: no limitations General appearance: alert Head exam: Present: atraumatic Eye exam: Present: normal appearance ENT exam: Present: normal exam, mucous membranes moist Neck exam: Present: normal inspection, full ROM. Absent: tenderness Respiratory exam: Present: normal lung sounds bilaterally, chest wall tenderness (Left-sided anterior chest wall tenderness). Absent: respiratory distress Cardiovascular Exam: Present: regular rate, normal rhythm, normal heart sounds GI/Abdominal exam: Present: soft, normal bowel sounds. Absent: distended, tenderness, guarding, rebound, rigid Course Vital Signs 05/31/20 05/31/20 00:35 01:52 Temperature 98.4 F Pulse Rate 69 72 Respiratory 18 16 Rate Blood Pressure 134/86 123/70 O2 Sat by Pulse 98 98 Oximetry - Reevaluation(s) Reevaluation #1: 05/31/20 01:02 Patient reports last month she had a negative stress test and echo. She sees cardiology for sinus bradycardia. EKG Findings - EKG Comments: EKG Findings:: Normal sinus rhythm, ventricular rate 60, GA interval 134, QTC 428 Medical Decision Making - Medical Decision Making Vitals are stable. Patient states that upon arrival to the emergency room s ymptoms have completely resolved. Symptoms are atypical in nature. She has reproducible pain with palpation to the anterior chest wall. CBC CMP unremarkable. EKG is nonischemic. Troponin is negative. D-dimer is negative. Patient has had recent cardiac workup for sinus bradycardia. Suspect pain is related to chest wall discomfort. Patient was discharged home and follow-up with primary care. She'll return here for any worsening symptoms. - Lab Data Result diagrams: 05/31/20 00:56 05/31/20 00:56 Lab Results 05/31/20 05/31/20 05/31/20 Range/Units 00:56 00:56 00:56 WBC 8.1 (3.8-10.6) k/uL RBC 4.48 (3.80-5.40) m/uL Hgb 14.7 (11.4-16.0) gm/dL Hct 43.0 (34.0-46.0) % MCV 95.9 (80.0-100.0) fL MCH 32.8 (25.0-35.0) pg MCHC 34.3 (31.0-37.0) g/dL RDW 11.6 (11.5-15.5) % Plt Count 207 (150-450) k/uL MPV 8.0 Neutrophils % 64 % Lymphocytes % 23 % Monocytes % 7 % Eosinophils % 4 % Basophils % 1 % Neutrophils # 5.2 (1.3-7.7) k/uL Lymphocytes # 1.9 (1.0-4.8) k/uL Monocytes # 0.5 (0-1.0) k/uL Eosinophils # 0.3 (0-0.7) k/uL Basophils # 0.1 (0-0.2) k/uL PT 11.4 (9.0-12.0) sec INR 1.1 (<1.2) APTT 26.0 (22.0-30.0) sec D-Dimer <0.17 (<0.60) mg/L FEU Sodium 138 (137-145) mmol/L Potassium 3.8 (3.5-5.1) mmol/L Chloride 107 (98-107) mmol/L Carbon Dioxide 24 (22-30) mmol/L Anion Gap 7 mmol/L BUN 18 H (7-17) mg/dL Creatinine 0.75 (0.52-1.04) mg/dL Est GFR (CKD-EPI)AfAm >90 (>60 ml/min/1.73 sqM) Est GFR (CKD-EPI)NonAf >90 (>60 ml/min/1.73 sqM) Glucose 82 (74-99) mg/dL Calcium 9.5 (8.4-10.2) mg/dL Magnesium 2.1 (1.6-2.3) mg/dL Total Bilirubin 0.7 (0.2-1.3) mg/dL AST 20 (14-36) U/L ALT 13 (4-34) U/L Alkaline Phosphatase 78 (38-126) U/L Troponin I (0.000-0.034) ng/mL Total Protein 7.7 (6.3-8.2) g/dL Albumin 4.6 (3.5-5.0) g/dL Lipase 285 (23-300) U/L Urine HCG, Qual (Not Detectd) 05/31/20 05/31/20 Range/Units 00:56 01:01 WBC (3.8-10.6) k/uL RBC (3.80-5.40) m/uL Hgb (11.4-16.0) gm/dL Hct (34.0-46.0) % MCV (80.0-100.0) fL MCH (25.0-35.0) pg MCHC (31.0-37.0) g/dL RDW (11.5-15.5) % Plt Count (150-450) k/uL MPV Neutrophils % % Lymphocytes % % Monocytes % % Eosinophils % % Basophils % % Neutrophils # (1.3-7.7) k/uL Lymphocytes # (1.0-4.8) k/uL Monocytes # (0-1.0) k/uL Eosinophils # (0-0.7) k/uL Basophils # (0-0.2) k/uL PT (9.0-12.0) sec INR (<1.2) APTT (22.0-30.0) sec D-Dimer (<0.60) mg/L FEU Sodium (137-145) mmol/L Potassium (3.5-5.1) mmol/L Chloride (98-107) mmol/L Carbon Dioxide (22-30) mmol/L Anion Gap mmol/L BUN (7-17) mg/dL Creatinine (0.52-1.04) mg/dL Est GFR (CKD-EPI)AfAm (>60 ml/min/1.73 sqM) Est GFR (CKD-EPI)NonAf (>60 ml/min/1.73 sqM) Glucose (74-99) mg/dL Calcium (8.4-10.2) mg/dL Magnesium (1.6-2.3) mg/dL Total Bilirubin (0.2-1.3) mg/dL AST (14-36) U/L ALT (4-34) U/L Alkaline Phosphatase (38-126) U/L Troponin I <0.012 (0.000-0.034) ng/mL Total Protein (6.3-8.2) g/dL Albumin (3.5-5.0) g/dL Lipase (23-300) U/L Urine HCG, Qual Not Detected (Not Detectd) Disposition Clinical Impression: Atypical chest pain Disposition: HOME SELF-CARE Condition: Good Instructions (If sedation given, give patient instructions): Chest Pain (ED) Additional Instructions: Please follow-up with your doctor in one to 2 days. Please return to the emergency room for any worsening symptoms. Is patient prescribed a controlled substance at d/c from ED?: No Referrals: Natasha Tabares MD [Primary Care Provider] - 1-2 days Time of Disposition: 02:07
[2020-05-31 01:12] LABS: Basophils # (A) 0.1 k/uL (0-0.2); Basophils % (A) 1 %; Eosinophils # (A) 0.3 k/uL (0-0.7); Eosinophils % (A) 4 %; HGB 14.7 gm/dL (11.4-16.0); Lymphocytes # (A) 1.9 k/uL (1.0-4.8); Lymphocytes % (A) 23 %; MCH 32.8 pg (25.0-35.0); MCHC 34.3 g/dL (31.0-37.0); MCV 95.9 fL (80.0-100.0); Monocytes # (A) 0.5 k/uL (0-1.0); Monocytes % (A) 7 %; Neutrophils # (A) 5.2 k/uL (1.3-7.7); Neutrophils % (A) 64 %; Platelet Count 207 k/uL (150-450); RBC 4.48 m/uL (3.80-5.40); RDW 11.6 % (11.5-15.5); WBC 8.1 k/uL (3.8-10.6)
--- NOTE | 2020-05-31 01:15 | XR ---
EXAM: XR Chest, 2 Views CLINICAL HISTORY: ITS.REASON XR Reason: Chest Pain TECHNIQUE: Frontal and lateral views of the chest. COMPARISON: Chest x-ray dated 04/01/2020 FINDINGS: Lungs: Unremarkable. Pleural space: Unremarkable. Heart: Unremarkable. Mediastinum: Unremarkable. Bones/joints: Unremarkable. IMPRESSION: Normal chest x-rays.
[2020-05-31 01:28] LABS: D-Dimer <0.17 mg/L FEU (<0.60); INR 1.1 (<1.2); Prothrombin Time 11.4 sec (9.0-12.0)
[2020-05-31 01:33] LABS: ALT 13 U/L (4-34); AST 20 U/L (14-36); African American GFR (CKD) >90 (>60 ml/min/1.73 sqM); Albumin 4.6 g/dL (3.5-5.0); Alkaline Phosphatase 78 U/L (38-126); Anion Gap 7 mmol/L; Blood Urea Nitrogen 18 mg/dL (7-17); Calcium 9.5 mg/dL (8.4-10.2); Carbon Dioxide 24 mmol/L (22-30); Chloride 107 mmol/L (98-107); Glucose 82 mg/dL (74-99); Lipase 285 U/L (23-300); Magnesium 2.1 mg/dL (1.6-2.3); Non-African American GFR(CKD) >90 (>60 ml/min/1.73 sqM); Potassium 3.8 mmol/L (3.5-5.1); Sodium 138 mmol/L (137-145); Total Bilirubin 0.7 mg/dL (0.2-1.3); Total Protein 7.7 g/dL (6.3-8.2)
[2020-05-31 01:53] VITALS: BP 123/70; PULSE 72; RESP 16
== END 2020-05-31 02:10 | disposition home or self-care (01) ==
LOC: EC 00:30
DX: R07.89 Other chest pain (principal); R06.02 Shortness of breath; G35 Multiple sclerosis; F17.200 Nicotine dependence, unspecified, uncomplicated; F31.9 Bipolar disorder, unspecified; Z79.899 Other long term (current) drug therapy; Z88.0 Allergy status to penicillin; Z91.012 Allergy to eggs; Z91.018 Allergy to other foods
CPT/HCPCS: 36415; 71046; 80053; 81025; 83690; 83735; 84484; 85025; 85379; 85610; 85730; 93005; 99285

== ENCOUNTER → 2020-07-14 | Outpatient (CLI) | payer OTHER ==
[2020-07-15 01:24] LABS: Hemoglobin A1C 4.9 % (4.0-6.0)
[2020-07-15 03:48] LABS: African American GFR (CKD) 112.3 (60.0-200.0); Albumin 4.7 g/dL (3.80-4.90); Albumin/Globulin Ratio 2.47 (1.60-3.17); Anion Gap 8.8 mmol/L (4.00-12.00); BUN/Creat Ratio 18.75 Ratio (12.00-20.00); Carbon Dioxide 22.2 mmol/L (21.6-31.8); Globulin 1.9 g/dL (1.6-3.3); Non-African American GFR(CKD) 96.9 (60.0-200.0); Potassium 3.6 mmol/L (3.5-5.5); Total Bilirubin 0.8 mg/dL (0.2-1.2); Total Protein 6.6 g/dL (6.2-8.2)
[2020-07-15 03:59] LABS: Folate, Serum 8.4 ng/mL
[2020-07-15 05:36] LABS: Hepatitis B Core IgM Non-Reactive (Non-Reactive); Hepatitis B Surface AB- Quant 3.5 mIU/mL; Hepatitis B Surface Antibody Non-Reactive (Non-Reactive); Hepatitis B Surface Antigen Non-Reactive (Non-Reactive)
[2020-07-15 11:17] LABS: Basophils # (A) 0.05 X 10*3/uL (0.00-0.10); Basophils % (A) 0.5 %; Eosinophils # (A) 0.09 X 10*3/uL (0.04-0.35); HCT 42.4 % (37.2-46.3); HGB 13.3 g/dL (12.0-15.0); Lymphocytes # (A) 1.29 X 10*3/uL (0.90-5.00); Lymphocytes % (A) 13.9 %; MCH 32.4 pg (27.0-32.0); MCHC 31.4 g/dL (32.0-37.0); MCV 103.4 fL (80.0-97.0); Mean Platelet Volume 11.8 fL (9.5-12.2); Monocytes # (A) 0.48 X 10*3/uL (0.20-1.00); Monocytes % (A) 5.2 %; Neutrophils # (A) 7.35 X 10*3/uL (1.80-7.70); Neutrophils % (A) 79.1 %; Platelet Count 219 X 10*3/uL (140-440); RDW 12.4 % (11.5-14.5); WBC 9.29 X 10*3/uL (4.50-10.00)
[2020-07-16 05:05] LABS: Varicella IgM Antibody 0.23 INDEX (<=0.90)
== END | disposition home or self-care (01) ==
LOC: LABWHC1 14:58
PROVIDERS: ATTEND Psychiatry & Neurology Pain Medicine
DX: G35 Multiple sclerosis (principal); Z51.81 Encounter for therapeutic drug level monitoring
CPT/HCPCS: 36415; 80053; 82306; 82607; 82746; 83036; 84207; 84425; 84439; 84443; 84481; 84591; 85025; 86704; 86705; 86706; 86787; 87340

== ENCOUNTER 2020-07-22 17:05 | Emergency (ER) | payer OTHER ==
--- NOTE | 2020-07-22 19:29 | US ---
EXAMINATION TYPE: US venous doppler duplex UE LT DATE OF EXAM: 07/22/2020 COMPARISON: NONE CLINICAL HISTORY: pain, hx factor 5. Pain, Hx factor 5. Patient does not take blood thinners. SIDE PERFORMED: Left upper extremity TECHNIQUE: Departmental protocol FINDINGS: There are internal echoes in the perimeter of the left IJV and left mid subclavian vein. Th e left IJV does not compress completely; unable to attempt compression of the left subclavian vein. Remaining veins imaged within the left upper extremity are negative for direct or indirect evidence o f filling defects. IMPRESSION: Partial filling defects within left IJV and left subclavian veins, compatible with a clinical diagnos is of chronic nonocclusive venous thrombus.
--- NOTE | 2020-07-22 20:15 | ED ---
General Adult HPI - General Chief complaint: Extremity Injury, Upper Stated complaint: Extremity Issue Time Seen by Provider: 07/22/20 17:15 Source: patient Mode of arrival: ambulatory Limitations: no limitations - History of Present Illness Initial comments: 35-year-old female with past medical history of MS presents to the emergency room with reported numbness, "coldness" and color change to the left upper extremity. Patient states that she was at work when she noticed that her left hand turn purple and she had some numbness. Symptoms affected the patient's forearm and hand. She denies any weakness in the extremity during the episode. Reports that lasted for approximately an hour before resolving on its own. Denies history of similar in the past. Patient is right-hand dominant. Denies any injuries. Does admit to a history of factor V without known blood clots. 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 Denies DVT/PE. Patient takes a baby aspirin a day. Upon arrival to the emergency room the patient's symptoms have completely resolved. She denies concern for . No chest pain or shortness of breath. No other alleviating, precipitating or modifying factors - Related Data Home Medications Medication Instructions Recorded Confirmed Butalb/APAP/Caff 50-325-40Mg 1 tab PO TID PRN 04/01/20 04/01/20 [Fioricet 50-325-40] Sertraline [Zoloft] 50 mg PO DAILY 04/01/20 04/01/20 lamoTRIgine [LaMICtal] 50 mg PO HS 04/01/20 04/01/20 modafiniL [Provigil] 200 mg PO DAILY PRN 04/01/20 04/01/20 Allergies Allergy/AdvReac Type Severity Reaction Status Date / Time amoxicillin AdvReac Nausea & Verified 05/31/20 00:38 Vomiting [place] And Derivatives AdvReac Unknown Verified 05/31/20 00:38 egg AdvReac Unknown Verified 05/31/20 00:38 peas AdvReac Unknown Verified 05/31/20 00:38 Penicillins AdvReac Nausea & Verified 05/31/20 00:38 Vomiting soy AdvReac Unknown Verified 05/31/20 00:38 wheat AdvReac Unknown Verified 05/31/20 00:38 Review of Systems ROS Statement: Those systems with pertinent positive or pertinent negative responses have been documented in the HPI. ROS Other: All systems not noted in ROS Statement are negative. Past Medical History Additional Past Medical History / Comment(s): chronic knee and back pain, vit d deficiency, MS, narcalepsy, Factor 5 History of Any Multi-Drug Resistant Organisms: None Reported Past Surgical History: Joint Replacement Additional Past Surgical History / Comment(s): right knee surgery Past Psychological History: Bipolar, Depression Smoking Status: Current every day smoker Past Alcohol Use History: Rare Past Drug Use History: Marijuana General Exam Limitations: no limitations General appearance: alert, in no apparent distress Head exam: Present: atraumatic, normocephalic, normal inspection Eye exam: Present: normal appearance, PERRL, EOMI. Absent: scleral icterus, conjunctival injection, periorbital swelling ENT exam: Present: normal exam, mucous membranes moist Neck exam: Present: normal inspection. Absent: tenderness, meningismus, lymphadenopathy Respiratory exam: Present: normal lung sounds bilaterally. Absent: respiratory distress, wheezes, rales, rhonchi, stridor Cardiovascular Exam: Present: regular rate, normal rhythm, normal heart sounds. Absent: systolic murmur, diastolic murmur, rubs, gallop, clicks GI/Abdominal exam: Present: soft, normal bowel sounds. Absent: distended, tenderness, guarding, rebound, rigid Extremities exam: Present: normal inspection, full ROM, normal capillary refill, other (2+ radial and ulnar pulses bilaterally. <3 second cap refill. Intact sensation over the medial, lateral and dorsal b/l us). Absent: tenderness, pedal edema, joint swelling, calf tenderness Back exam: Present: normal inspection Neurological exam: Present: alert, oriented X3, CN II-XII intact Psychiatric exam: Present: normal affect, normal mood Skin exam: Present: warm, dry, intact, normal color. Absent: rash Course Vital Signs 07/22/20 07/22/20 17:15 20:25 Temperature 98 F 98.3 F Pulse Rate 67 50 L Respiratory 18 14 Rate Blood Pressure 119/79 128/75 O2 Sat by Pulse 98 100 Oximetry Medical Decision Making - Medical Decision Making Upon arrival patient was placed into room 29. A thorough history and physical exam was performed. Ultrasound is performed of the patient's left upper extremity due to her history of DVT with cramping. Ultrasound demonstrates partial filling defects within the left IJV and left subclavian veins compatible with clinical diagnosis of chronic nonocclusive venous thrombosis. I did call and discuss the case with Dr. Gant. Does recommend the patient takes aspirin daily. Can follow up in office for further evaluation. Patient does have bounding palpable radial and ulnar pulses with good Refill. No signs of arterial occlusion. Patient feels comfortable with this information at this time. Will be discharged home. Follow up with her primary care doctor in 2-4 days. Return for any new or worsening symptoms. Patient was discharged home in stable condition Disposition Clinical Impression: Left arm numbness, Chronic internal jugular vein thrombosis Disposition: HOME SELF-CARE Condition: Stable Instructions (If sedation given, give patient instructions): Arm Pain (ED) Additional Instructions: Please follow up with Dr. Gant in regards to your symptoms. Start taking a full dose aspirin daily (325 mg). Return to the ED for any new or worsening symptoms Is patient prescribed a controlled substance at d/c from ED?: No Referrals: Natasha Tabares MD [Primary Care Provider] - 1-2 days Time of Disposition: 20:15
[2020-07-22 20:27] VITALS: BP 128/75; PULSE 50; RESP 14; TEMP 98.3
== END 2020-07-22 20:20 | disposition home or self-care (01) ==
LOC: EC 17:05
DX: I82.C22 Chronic embolism and thrombosis of left internal jugular vein (principal); R20.0 Anesthesia of skin; F32.9 Major depressive disorder, single episode, unspecified; F17.200 Nicotine dependence, unspecified, uncomplicated; Z79.899 Other long term (current) drug therapy; Z88.0 Allergy status to penicillin; Z91.012 Allergy to eggs; Z91.018 Allergy to other foods; Z96.60 Presence of unspecified orthopedic joint implant
CPT/HCPCS: 99284

== ENCOUNTER 2020-09-07 19:24 | Emergency (ER) | payer OTHER ==
[2020-09-07 19:28] VITALS: TEMP 98.4
[2020-09-07 19:56] LABS: Appearance,Urine Cloudy (Clear); Bacteria,Urine Rare /hpf; Bilirubin,Urine Negative (Negative); Blood,Urine Negative (Negative); Color,Urine Yellow; Glucose,Urine (UA) Negative (Negative); Ketones,Urine Negative (Negative); Leukocyte Esterase,Urine Trace (Negative); Mucus,Urine Moderate /hpf; Nitrite,Urine Negative (Negative); Protein,Urine Negative (Negative); RBC,Urine 1 /hpf (0-5); Specific Gravity,Urine 1.025 (1.001-1.035); Squamous Epithelial Cell,Urine 11 /hpf (0-4); WBC,Urine 4 /hpf (0-5)
[2020-09-07] MEDS ORDERED: DICYCLOMINE 20 MG TAB PO STA (21:36)
[2020-09-07] MEDS ORDERED: SODIUM CHLORIDE 0.9% 1,000 ML IV STA (21:36)
[2020-09-07 22:10] LABS: Basophils % (A) 0 %; Eosinophils # (A) 0.2 k/uL (0-0.7); Eosinophils % (A) 3 %; HCT 40.4 % (34.0-46.0); HGB 13.1 gm/dL (11.4-16.0); Lymphocytes # (A) 1.6 k/uL (1.0-4.8); Lymphocytes % (A) 18 %; MCH 32.1 pg (25.0-35.0); MCHC 32.4 g/dL (31.0-37.0); MCV 98.8 fL (80.0-100.0); Mean Platelet Volume 8.2; Monocytes # (A) 0.6 k/uL (0-1.0); Monocytes % (A) 6 %; Neutrophils # (A) 6.6 k/uL (1.3-7.7); Neutrophils % (A) 72 %; Platelet Count 192 k/uL (150-450); RBC 4.09 m/uL (3.80-5.40); RDW 12.3 % (11.5-15.5); WBC 9.1 k/uL (3.8-10.6)
[2020-09-07 22:22] LABS: ALT 12 U/L (4-34); AST 21 U/L (14-36); African American GFR (CKD) >90 (>60 ml/min/1.73 sqM); Alkaline Phosphatase 58 U/L (38-126); Amylase 58 U/L (30-110); Anion Gap 6 mmol/L; Blood Urea Nitrogen 15 mg/dL (7-17); Calcium 9.3 mg/dL (8.4-10.2); Carbon Dioxide 24 mmol/L (22-30); Chloride 106 mmol/L (98-107); Glucose 92 mg/dL (74-99); Lipase 136 U/L (23-300); Non-African American GFR(CKD) >90 (>60 ml/min/1.73 sqM); Potassium 4.5 mmol/L (3.5-5.1); Sodium 136 mmol/L (137-145); Total Bilirubin 1.3 mg/dL (0.2-1.3); Total Protein 6.5 g/dL (6.3-8.2)
--- NOTE | 2020-09-07 22:22 | ED ---
Abdominal Pain HPI - General Chief Complaint: Abdominal Pain Stated Complaint: abd pain/bloating Time Seen by Provider: 09/07/20 21:10 Source: patient, RN notes reviewed Mode of arrival: ambulatory Limitations: no limitations - History of Present Illness Initial Comments: 35-year-old female presents emergency Department with chief complaint of abdominal pain. Patient states started yesterday. She states she initially had some abdominal pain and back pain and abdominal plain. She became very digit bloated, distended she states it seemed to improve after bowel movement but still had the pain. She states the bloating resolved. No dysuria no hematuria denies any diarrhea, constipation, melena hematochezia. No fevers or chills no prior abdominal surgeries denies any chance no vaginal symptoms. - Related Data Home Medications Medication Instructions Recorded Confirmed Butalb/APAP/Caff 50-325-40Mg 1 tab PO TID PRN 04/01/20 04/01/20 [Fioricet 50-325-40] Sertraline [Zoloft] 50 mg PO DAILY 04/01/20 04/01/20 lamoTRIgine [LaMICtal] 50 mg PO HS 04/01/20 04/01/20 modafiniL [Provigil] 200 mg PO DAILY PRN 04/01/20 04/01/20 Previous Rx's Medication Instructions Recorded Ibuprofen [Motrin] 600 mg PO Q8HR PRN #20 tab 09/07/20 Allergies Allergy/AdvReac Type Severity Reaction Status Date / Time amoxicillin AdvReac Nausea & Verified 05/31/20 00:38 Vomiting [place] And Derivatives AdvReac Unknown Verified 05/31/20 00:38 egg AdvReac Unknown Verified 05/31/20 00:38 peas AdvReac Unknown Verified 05/31/20 00:38 Penicillins AdvReac Nausea & Verified 05/31/20 00:38 Vomiting soy AdvReac Unknown Verified 05/31/20 00:38 wheat AdvReac Unknown Verified 05/31/20 00:38 Review of Systems ROS Statement: Those systems with pertinent positive or pertinent negative responses have been documented in the HPI. ROS Other: All systems not noted in ROS Statement are negative. Past Medical History Additional Past Medical History / Comment(s): chronic knee and back pain, vit d deficiency, MS, narcalepsy, Factor 5 History of Any Multi-Drug Resistant Organisms: None Reported Past Surgical History: Joint Replacement Additional Past Surgical History / Comment(s): right knee surgery Past Psychological History: Bipolar, Depression Smoking Status: Current every day smoker Past Alcohol Use History: Rare Past Drug Use History: Marijuana General Exam Limitations: no limitations General appearance: alert, in no apparent distress Head exam: Present: atraumatic, normocephalic, normal inspection Neck exam: Present: normal inspection, full ROM. Absent: tenderness, meningismus, lymphadenopathy Respiratory exam: Present: normal lung sounds bilaterally. Absent: respiratory distress, wheezes, rales, rhonchi, stridor Cardiovascular Exam: Present: regular rate, normal rhythm, normal heart sounds. Absent: systolic murmur, diastolic murmur, rubs, gallop, clicks GI/Abdominal exam: Present: soft, tenderness, normal bowel sounds. Absent: distended, guarding, rebound, rigid Back exam: Absent: CVA tenderness (R), CVA tenderness (L) Neurological exam: Present: alert Skin exam: Present: warm, dry, intact, normal color. Absent: rash Course Vital Signs 09/07/20 19:26 Temperature 98.4 F Pulse Rate 76 Respiratory 20 Rate Blood Pressure 115/68 O2 Sat by Pulse 99 Oximetry Medical Decision Making - Medical Decision Making 35-year-old female presented for abdominal pain. Patient's labs, urinalysis and CT reviewed patient has evidence of pelvic vascular congestion. Patient will follow-up with [facility]. Patient will be discharged in stable condition. - Lab Data Result diagrams: 09/07/20 21:48 09/07/20 21:48 Lab Results 09/07/20 09/07/20 09/07/20 Range/Units 19:34 19:34 21:48 WBC 9.1 (3.8-10.6) k/uL RBC 4.09 (3.80-5.40) m/uL Hgb 13.1 (11.4-16.0) gm/dL Hct 40.4 (34.0-46.0) % MCV 98.8 (80.0-100.0) fL MCH 32.1 (25.0-35.0) pg MCHC 32.4 (31.0-37.0) g/dL RDW 12.3 (11.5-15.5) % Plt Count 192 (150-450) k/uL MPV 8.2 Neutrophils % 72 % Lymphocytes % 18 % Monocytes % 6 % Eosinophils % 3 % Basophils % 0 % Neutrophils # 6.6 (1.3-7.7) k/uL Lymphocytes # 1.6 (1.0-4.8) k/uL Monocytes # 0.6 (0-1.0) k/uL Eosinophils # 0.2 (0-0.7) k/uL Basophils # 0.0 (0-0.2) k/uL Sodium (137-145) mmol/L Potassium (3.5-5.1) mmol/L Chloride (98-107) mmol/L Carbon Dioxide (22-30) mmol/L Anion Gap mmol/L BUN (7-17) mg/dL Creatinine (0.52-1.04) mg/dL Est GFR (CKD-EPI)AfAm (>60 ml/min/1.73 sqM) Est GFR (CKD-EPI)NonAf (>60 ml/min/1.73 sqM) Glucose (74-99) mg/dL Plasma Lactic Acid Flex (0.7-2.0) mmol/L Calcium (8.4-10.2) mg/dL Total Bilirubin (0.2-1.3) mg/dL AST (14-36) U/L ALT (4-34) U/L Alkaline Phosphatase (38-126) U/L Total Protein (6.3-8.2) g/dL Albumin (3.5-5.0) g/dL Amylase (30-110) U/L Lipase (23-300) U/L Urine Color Yellow Urine Appearance Cloudy H (Clear) Urine pH 7.0 (5.0-8.0) Ur Specific [place] 1.025 (1.001-1.035) Urine Protein Negative (Negative) Urine Glucose (UA) Negative (Negative) Urine Ketones Negative (Negative) Urine Blood Negative (Negative) Urine Nitrite Negative (Negative) Urine Bilirubin Negative (Negative) Urine Urobilinogen 3.0 (<2.0) mg/dL Ur Leukocyte Esterase Trace H (Negative) Urine RBC 1 (0-5) /hpf Urine WBC 4 (0-5) /hpf Ur Squamous Epith Cells 11 H (0-4) /hpf Urine Bacteria Rare H (None) /hpf Urine Mucus Moderate H (None) /hpf Urine HCG, Qual Not Detected (Not Detectd) 09/07/20 09/07/20 Range/Units 21:48 21:48 WBC (3.8-10.6) k/uL RBC (3.80-5.40) m/uL Hgb (11.4-16.0) gm/dL Hct (34.0-46.0) % MCV (80.0-100.0) fL MCH (25.0-35.0) pg MCHC (31.0-37.0) g/dL RDW (11.5-15.5) % Plt Count (150-450) k/uL MPV Neutrophils % % Lymphocytes % % Monocytes % % Eosinophils % % Basophils % % Neutrophils # (1.3-7.7) k/uL Lymphocytes # (1.0-4.8) k/uL Monocytes # (0-1.0) k/uL Eosinophils # (0-0.7) k/uL Basophils # (0-0.2) k/uL Sodium 136 L (137-145) mmol/L Potassium 4.5 (3.5-5.1) mmol/L Chloride 106 (98-107) mmol/L Carbon Dioxide 24 (22-30) mmol/L Anion Gap 6 mmol/L BUN 15 (7-17) mg/dL Creatinine 0.70 (0.52-1.04) mg/dL Est GFR (CKD-EPI)AfAm >90 (>60 ml/min/1.73 sqM) Est GFR (CKD-EPI)NonAf >90 (>60 ml/min/1.73 sqM) Glucose 92 (74-99) mg/dL Plasma Lactic Acid Flex <0.5 L (0.7-2.0) mmol/L Calcium 9.3 (8.4-10.2) mg/dL Total Bilirubin 1.3 (0.2-1.3) mg/dL AST 21 (14-36) U/L ALT 12 (4-34) U/L Alkaline Phosphatase 58 (38-126) U/L Total Protein 6.5 (6.3-8.2) g/dL Albumin 4.0 (3.5-5.0) g/dL Amylase 58 (30-110) U/L Lipase 136 (23-300) U/L Urine Color Urine Appearance (Clear) Urine pH (5.0-8.0) Ur Specific [place] (1.001-1.035) Urine Protein (Negative) Urine Glucose (UA) (Negative) Urine Ketones (Negative) Urine Blood (Negative) Urine Nitrite (Negative) Urine Bilirubin (Negative) Urine Urobilinogen (<2.0) mg/dL Ur Leukocyte Esterase (Negative) Urine RBC (0-5) /hpf Urine WBC (0-5) /hpf Ur Squamous Epith Cells (0-4) /hpf Urine Bacteria (None) /hpf Urine Mucus (None) /hpf Urine HCG, Qual (Not Detectd) Disposition Clinical Impression: Varicosities of pelvis, Abdominal pain Disposition: HOME SELF-CARE Condition: Stable Instructions (If sedation given, give patient instructions): Abdominal Pain (ED) Additional Instructions: Please return to the Emergency Department if symptoms worsen or any other concerns. Prescriptions: Ibuprofen [Motrin] 600 mg PO Q8HR PRN #20 tab PRN Reason: Pain Is patient prescribed a controlled substance at d/c from ED?: No Referrals: Natasha Tabares MD [Primary Care Provider] - 1-2 days Time of Disposition: 22:32
--- NOTE | 2020-09-07 22:28 | CT ---
EXAMINATION TYPE: CT abdomen pelvis w con DATE OF EXAM: 09/07/2020 COMPARISON: 11/14/2014 HISTORY: abdominal pain, nausea, vomiting CT DLP: 489.6 mGycm Automated exposure control for dose reduction was used. CONTRAST: Performed with IV Contrast, patient injected with 100 mL of Isovue 300. Images obtained from the diaphragm to the floor the pelvis with IV contrast. FINDINGS: Lung bases are clear. There is no pleural effusion. Heart size is normal. There is no pericardial eff usion. Liver spleen pancreas stomach appear intact. The bile ducts are not dilated. Gallbladder is contracte d. There is no adrenal mass. There are some varicose veins at the splenic hilum. There is normal enhance ment of the portal venous system. Kidneys show satisfactory contrast opacification. There is no hydro nephrosis. Delayed images show normal renal excretion. There is no retroperitoneal adenopathy. Ureter s are not dilated. Bladder distends smoothly. There is no inguinal hernia. There is no free fluid in the pelvis. Uterus is anteverted. There is no evidence of a pelvic mass. Lumbar vertebra are normal spacing and alignment. Posterior elements are intact. There is no compress ion fracture. Bony pelvis is intact. The hip joints appear normal. Appendix is partly filled with air and appears normal. There are some varicose veins in the pelvis on the left side. There is large left ovarian vein. There are no varices at the gastroesophageal junction. There is some pinching of the left renal vein betwe en the aorta and superior mesenteric vein. IMPRESSION: Varicose veins in the pelvis on the left side with mildly dilated left ovary and vein which empties i nto the left renal vein. There could BE a mild relative venous obstruction due to pinching of the lef t renal vein. There are a few tortuous veins posterior to the splenic vein but no other sign of portal venous hyper tension. This is of doubtful significance.
[2020-09-07] MEDS ORDERED: ACET/COD 300 MG/30 MG STARTER PACK 6 TAB BTL PO STA (22:33)
[2020-09-07 23:11] VITALS: BP 109/60; PULSE 78; RESP 18
== END 2020-09-07 23:22 | disposition home or self-care (01) ==
LOC: EC 19:24
DX: I86.2 Pelvic varices (principal); R10.9 Unspecified abdominal pain; F31.9 Bipolar disorder, unspecified; F17.200 Nicotine dependence, unspecified, uncomplicated; F12.90 Cannabis use, unspecified, uncomplicated
CPT/HCPCS: 36415; 80053; 82150; 83605; 83690; 85025; 81001; 81025; 74177; 99284; 96360; Q9967

== ENCOUNTER → 2020-12-23 | Outpatient (CLI) | payer OTHER ==
[2020-12-23 22:27] LABS: African American GFR (CKD) 112.3 (60.0-200.0); Albumin 4.3 g/dL (3.80-4.90); Albumin/Globulin Ratio 1.95 (1.60-3.17); Anion Gap 6.5 mmol/L (4.00-12.00); Calcium 8.8 mg/dL (8.7-10.3); Carbon Dioxide 23.5 mmol/L (21.6-31.8); Globulin 2.2 g/dL (1.6-3.3); Non-African American GFR(CKD) 96.9 (60.0-200.0); Potassium 3.9 mmol/L (3.5-5.5); Total Bilirubin 0.7 mg/dL (0.3-1.2); Total Protein 6.5 g/dL (6.2-8.2)
== END | disposition home or self-care (01) ==
LOC: LABWHC1 11:55
PROVIDERS: ATTEND Psychiatry & Neurology Pain Medicine
DX: R42 Dizziness and giddiness (principal)
CPT/HCPCS: 36415; 80053

== ENCOUNTER 2021-01-18 18:28 | Emergency (ER) | payer OTHER ==
[2021-01-18 19:05] VITALS: TEMP 98.2
[2021-01-18] MEDS ORDERED: KETOROLAC 15 MG/ML 1 ML VIAL IVP STA (19:58)
[2021-01-18] MEDS ORDERED: diphenhydrAMINE 50 MG/ML 1 ML VIAL IVP STA (19:58)
[2021-01-18] MEDS ORDERED: SODIUM CHLORIDE 0.9% 500 ML 500 ML IV ONE (19:59)
--- NOTE | 2021-01-18 20:25 | ED ---
Headache HPI - General Source: patient, RN notes reviewed Mode of arrival: ambulatory Limitations: no limitations <Raghav Tony - Last Filed: 01/18/21 20:49> <Mimi Jones - Last Filed: 01/22/21 14:36> - General Chief Complaint: Headache Stated Complaint: headache x3 days Time Seen by Provider: 01/18/21 19:28 - History of Present Illness Initial Comments: This is a 35-year-old female presents emergency from she complaint of headache. Patient chronic headaches related to her MS. Patient states that she occ asionally has from the hospital for her headaches. Patient states it's diffuse in nature denies any associated weakness no fevers or chills no neck pain neck stiffness patient has some light sensitivity slight nausea without vomiting no other complaints. (Raghav Tony) - Related Data Home Medications Medication Instructions Recorded Confirmed Butalb/APAP/Caff 50-325-40Mg 1 tab PO TID PRN 04/01/20 01/18/21 [Fioricet 50-325-40] Sertraline [Zoloft] 50 mg PO DAILY 04/01/20 01/18/21 lamoTRIgine 100 mg PO HS 01/18/21 01/18/21 Allergies Allergy/AdvReac Type Severity Reaction Status Date / Time amoxicillin AdvReac Nausea & Verified 01/18/21 20:38 Vomiting [place] And Derivatives AdvReac Unknown Verified 01/18/21 20:38 egg AdvReac Unknown Verified 01/18/21 20:38 peas AdvReac Unknown Verified 01/18/21 20:38 Penicillins AdvReac Nausea & Verified 01/18/21 20:38 Vomiting soy AdvReac Unknown Verified 01/18/21 20:38 wheat AdvReac Unknown Verified 01/18/21 20:38 Review of Systems ROS Other: All systems not noted in ROS Statement are negative. <Raghav Tony - Last Filed: 01/18/21 20:49> ROS Other: All systems not noted in ROS Statement are negative. <Mimi Jones - Last Filed: 01/22/21 14:36> ROS Statement: Those systems with pertinent positive or pertinent negative responses have been documented in the HPI. Past Medical History Additional Past Medical History / Comment(s): chronic knee and back pain, vit d deficiency, MS, narcalepsy, Factor 5 History of Any Multi-Drug Resistant Organisms: None Reported Past Surgical History: Joint Replacement Additional Past Surgical History / Comment(s): right knee surgery Past Psychological History: Bipolar, Depression Smoking Status: Current every day smoker Past Alcohol Use History: Rare Past Drug Use History: Marijuana <Raghav Tony - Last Filed: 01/18/21 20:49> General Exam Limitations: no limitations General appearance: alert, in no apparent distress Head exam: Present: atraumatic, normocephalic, normal inspection Eye exam: Present: normal appearance, PERRL, EOMI. Absent: scleral icterus, conjunctival injection, periorbital swelling ENT exam: Present: normal exam, mucous membranes moist Neck exam: Present: normal inspection, full ROM. Absent: tenderness, meningismus, lymphadenopathy Respiratory exam: Present: normal lung sounds bilaterally. Absent: respiratory distress, wheezes, rales, rhonchi, stridor Cardiovascular Exam: Present: regular rate, normal rhythm, normal heart sounds. Absent: systolic murmur, diastolic murmur, rubs, gallop, clicks Extremities exam: Present: normal inspection, full ROM, normal capillary refill. Absent: tenderness, pedal edema, joint swelling, calf tenderness Neurological exam: Present: alert, oriented X3, CN II-XII intact, reflexes normal. Absent: motor sensory deficit <Raghav Tony - Last Filed: 01/18/21 20:49> Course Vital Signs 01/18/21 01/18/21 19:02 20:32 Temperature 98.2 F Pulse Rate 54 L 58 L Respiratory 16 20 Rate Blood Pressure 100/69 141/87 O2 Sat by Pulse 100 100 Oximetry Medical Decision Making <Raghav Tony - Last Filed: 01/18/21 20:49> <Mimi Jones - Last Filed: 01/22/21 14:36> - Medical Decision Making 35-year-old presented for migraine headache patient is chronic headaches this is symptomatic in the past neurologically intact patient is improved after migraine cocktail be discharged stable condition return parameters were discussed. (Raghav Tony) I was available for consultation in the emergency department. The history and physical exam were done by the midlevel provider. I was consulted for this patients care. I reviewed the case with the midlevel provider and based on their presentation of the patient, I agree with the assessment, medical decision making and plan of care as documented. Chart was dictated using [email or web address] dictation software. Attempts were made to correct any dictation errors however some typographical errors may persist. Patient was seen during a national state of emergency due to the Covid-19 pandemic. (Mimi Jones) Disposition Is patient prescribed a controlled substance at d/c from ED?: No Time of Disposition: 20:49 <Raghav Tony - Last Filed: 01/18/21 20:49> <Mimi Jones - Last Filed: 01/22/21 14:36> Clinical Impression: Migraine headache Disposition: HOME SELF-CARE Condition: Stable Instructions (If sedation given, give patient instructions): Acute Headache (ED) Additional Instructions: Please return to the Emergency Department if symptoms worsen or any other concerns. Referrals: Natasha Tabares MD [Primary Care Provider] - 1-2 days
[2021-01-18 20:33] VITALS: BP 141/87; PULSE 58; RESP 20
== END 2021-01-18 21:02 | disposition home or self-care (01) ==
LOC: EC 18:28
DX: G43.909 Migraine, unspecified, not intractable, without status migrainosus (principal); F17.200 Nicotine dependence, unspecified, uncomplicated; F12.90 Cannabis use, unspecified, uncomplicated; F31.9 Bipolar disorder, unspecified; Z79.899 Other long term (current) drug therapy; Z88.0 Allergy status to penicillin
CPT/HCPCS: 96374; 96375 ×2; 96361; 99283; J1200; J1885; J1790

== ENCOUNTER → 2021-03-15 | Outpatient (CLI) | payer OTHER ==
[2021-03-15 18:51] LABS: HCT 41.1 % (37.2-46.3); HGB 13.1 g/dL (12.0-15.0); MCH 32.3 pg (27.0-32.0); MCHC 31.9 g/dL (32.0-37.0); MCV 101.2 fL (80.0-97.0); Mean Platelet Volume 11.2 fL (9.5-12.2); Platelet Count 231 X 10*3/uL (140-440); RBC 4.06 X 10*6/uL (4.10-5.20); WBC 5.67 X 10*3/uL (4.50-10.00)
[2021-03-15 19:58] LABS: African American GFR (CKD) 123.5 (60.0-200.0); Albumin 4.3 g/dL (3.8-4.9); Anion Gap 8.2 mmol/L (4.00-12.00); BUN/Creat Ratio 14.01 Ratio (12.00-20.00); Blood Urea Nitrogen 10.3 mg/dL (9.0-27.0); Calcium 9.1 mg/dL (8.7-10.3); Carbon Dioxide 22.5 mmol/L (21.6-31.8); Globulin 2.1 g/dL (1.6-3.3); Non-African American GFR(CKD) 106.6 (60.0-200.0); Potassium 4.2 mmol/L (3.5-5.5); T4, Free (Free Thyroxine) 1.01 ng/dL (0.800-1.800); Total Bilirubin 0.3 mg/dL (0.30-1.20); Total Protein 6.4 g/dL (6.2-8.2)
== END | disposition home or self-care (01) ==
LOC: LABWHC1 09:58
PROVIDERS: ATTEND Psychiatry & Neurology Pain Medicine
DX: R41.3 Other amnesia (principal)
CPT/HCPCS: 36415; 80053; 82306; 82607; 82746; 83090; 84439; 84443; 84481; 85027